=== PATIENT | male | born 1940 | race Caucasian/White ===

== ENCOUNTER → 2020-02-23 | Outpatient (CLI) | payer MEDICARE, BC ==
--- NOTE | 2020-02-25 19:59 | HM ---
HOLTER MONITOR REPORT Patient was monitored for 24 hours. The baseline rhythm is a sinus mechanism with normal conduction. The average rate 126 beats per minute, minimum 64, maximum 192 beats per minute. The patient started the tracing in atrial flutter with episode of 2:1 conduction, subsequently converted to sinus mechanism until the end of the tracing. Ventricular ectopic activity was present in the form of rare single PVCs. Single PACs and short bursts of SVT were noted. The patient's tracing showed 72% atrial flutter. No symptoms were reported. CONCLUSION: 1. Paroxysmal atrial flutter with rapid ventricular response and no significant pauses. 2. Rare ventricular ectopic activity. 3. No symptoms were reported. MMODL / IJN: [id number] /
== END | disposition home or self-care (01) ==
LOC: RADECHMAIN 12:05
PROVIDERS: ATTEND Family Medicine
DX: I48.92 Unspecified atrial flutter (principal); H91.90 Unspecified hearing loss, unspecified ear; F20.9 Schizophrenia, unspecified
CPT/HCPCS: 93225; 93226

== ENCOUNTER 2022-05-03 14:21 | Inpatient (IN) | payer MEDICARE, BC ==
[2022-05-03] MEDS ORDERED: SODIUM CHLORIDE 0.9% 1,000 ML IV STA (14:33)
[2022-05-03 14:36] LABS: Glucose,Whole Blood 124 mg/dL (70-110)
--- NOTE | 2022-05-03 14:39 | ED ---
Altered Mental Status HPI - General Chief Complaint: Altered Mental Status Stated Complaint: AMS Time Seen by Provider: 05/03/22 14:21 Source: EMS, RN notes reviewed Mode of arrival: EMS Limitations: altered mental status - History of Present Illness Initial Comments: 82-year-old male with a history of depression and schizophrenia UTIs who is on L [place] who apparently is been experiencing frequent falls recently. He lives in an [facility] home he was sent here for evaluation due to decreased level of consciousness. Unclear if these had any recent falls no reports of fevers chills nausea vomiting sweats information obtained from medics upon arrival and paperwork sent with the patient. No other information available at this time. Per report of paramedics he does seem to complain of left shoulder pain when he palpated over this region. No other current complaints or modifying factors at this time MD Complaint: altered mental status, confusion - Related Data Home Medications Medication Instructions Recorded Confirmed Apixaban [Eliquis] 5 mg PO BID 05/03/22 05/03/22 Ascorbic Acid [Vitamin C] 500 mg PO BID 05/03/22 05/03/22 Benzoyl Peroxide Liquid 10% Wash 1 applic TOPICAL DAILY 05/03/22 05/03/22 Cholecalciferol [Vitamin D3 (25 50 mcg PO DAILY 05/03/22 05/03/22 Mcg = 1000 Iu)] Coricidin Hbp Chest Dilan&Cough 1 tab PO BID PRN 05/03/22 05/03/22 Diclofenac Sodium Gel [Voltaren 2 gm TOPICAL TID PRN 05/03/22 05/03/22 Gel] Hypochlor 0.02% 1 applic TOPICAL DAILY 05/03/22 05/03/22 Loratadine [Claritin] 10 mg PO DAILY 05/03/22 05/03/22 Metoprolol Succinate [Toprol XL] 50 mg PO DAILY 05/03/22 05/03/22 Mirtazapine [Remeron] 30 mg PO HS 05/03/22 05/03/22 Zinc Gluconate [Zinc] 50 mg PO DAILY 05/03/22 05/03/22 amantadine HCL [Amantadine] 100 mg PO DAILY 05/03/22 05/03/22 hydroCHLOROthiazide 25 mg PO DAILY 05/03/22 05/03/22 levETIRAcetam [Keppra] 500 mg PO BID 05/03/22 05/03/22 risperiDONE [RisperDAL] 1 mg PO HS 05/03/22 05/03/22 Allergies Allergy/AdvReac Type Severity Reaction Status Date / Time No Known Allergies Allergy Unverified 05/03/22 15:38 Review of Systems ROS Statement: Those systems with pertinent positive or pertinent negative responses have been documented in the HPI. ROS Other: All systems not noted in ROS Statement are negative. Limitations: ROS unobtainable due to patients medical condition Past Medical History Past Medical History: COPD, Hyperlipidemia History of Any Multi-Drug Resistant Organisms: None Reported Past Surgical History: No Surgical Hx Reported Past Psychological History: Depression, Schizophrenia Smoking Status: Unknown if ever smoked Past Alcohol Use History: None Reported Past Drug Use History: None Reported General Exam - General Exam Comments Initial Comments: This is a well-developed well-nourished awake alert no lethargic appearing male who does not answer questions. Limitations: altered mental status General appearance: alert, in no apparent distress Head exam: Present: atraumatic, normocephalic, normal inspection Eye exam: Present: normal appearance, PERRL, EOMI. Absent: scleral icterus, conjunctival injection, periorbital swelling ENT exam: Present: mucous membranes dry Neck exam: Present: normal inspection, full ROM, other (Studies urine or bruits). Absent: tenderness, meningismus, lymphadenopathy Respiratory exam: Present: normal lung sounds bilaterally. Absent: respiratory distress, wheezes, rales, rhonchi, stridor Cardiovascular Exam: Present: normal rhythm, normal heart sounds, other (Evidence of extrasystoles). Absent: systolic murmur, diastolic murmur, rubs, gallop, clicks GI/Abdominal exam: Present: soft, normal bowel sounds. Absent: distended, tenderness, guarding, rebound, rigid Rectal exam: Present: deferred Extremities exam: Present: normal inspection, tenderness (Chest palpation of left shoulder evidence of possible previous surgery with scar formation noted), normal capillary refill. Absent: full ROM, pedal edema, joint swelling, calf tenderness Back exam: Present: normal inspection Neurological exam: Present: alert, altered, CN II-XII intact Psychiatric exam: Present: normal affect, normal mood Skin exam: Present: warm, dry, intact, normal color. Absent: rash Course Vital Signs 05/03/22 05/03/2205/03/22 14:28 14:48 15:30 Temperature 98.8 F Pulse Rate 73 72 70 Respiratory 16 18 16 Rate Blood Pressure 130/67 133/66 106/62 O2 Sat by Pulse 96 97 96 Oximetry 05/03/22 16:19 Temperature Pulse Rate 68 Respiratory 18 Rate Blood Pressure O2 Sat by Pulse 97 Oximetry Medical Decision Making - Medical Decision Making I did discuss findings with Dr. Meza who did come to see the patient patient is a no code DO NOT RESUSCITATE. Patient be admitted I did discuss case with Dr. Chacon who did come the emergency department to see the patient. I also did discuss case with Dr. Bates from radiology. - Lab Data Result diagrams: 05/03/22 14:26 05/03/22 14:26 Lab Results 05/03/22 05/03/22 05/03/22 Range/Units 14:26 14:26 14:26 WBC 17.6 H (3.8-10.6) k/uL RBC 4.39 (4.30-5.90) m/uL Hgb 13.8 (13.0-17.5) gm/dL Hct 39.2 (39.0-53.0) % MCV 89.3 (80.0-100.0) fL MCH 31.3 (25.0-35.0) pg MCHC 35.1 (31.0-37.0) g/dL RDW 13.2 (11.5-15.5) % Plt Count 216 (150-450) k/uL MPV 8.1 Neutrophils % (Manual) 71 % Band Neuts % (Manual) 10 % Lymphocytes % (Manual) 7 % Monocytes % (Manual) 10 % Metamyelocytes % 2 % Neutrophils # (Manual) 14.20 H (1.3-7.7) k/uL Lymphocytes # (Manual) 1.23 (1.0-4.8) k/uL Monocytes # (Manual) 1.76 H (0-1.0) k/uL Metamyelocytes # (Man) 0.35 H (0) k/uL Nucleated RBCs 0 (0-0) /100 WBC Manual Slide Review Performed PT 12.6 H (9.0-12.0) sec INR 1.2 H (<1.2) APTT 33.0 H (22.0-30.0) sec Sodium 125 L (137-145) mmol/L Potassium 3.2 L (3.5-5.1) mmol/L Chloride 88 L (98-107) mmol/L Carbon Dioxide 24 (22-30) mmol/L Anion Gap 13 mmol/L BUN 24 H (9-20) mg/dL Creatinine 1.12 (0.66-1.25) mg/dL Est GFR (CKD-EPI)AfAm 71 (>60 ml/min/1.73 sqM) Est GFR (CKD-EPI)NonAf 61 (>60 ml/min/1.73 sqM) Glucose 121 H (74-99) mg/dL POC Glucose (mg/dL) (70-110) mg/dL POC Glu Payroll Human Resources Assistant ID Calcium 8.5 (8.4-10.2) mg/dL Total Bilirubin 1.2 (0.2-1.3) mg/dL AST 55 (17-59) U/L ALT 24 (4-49) U/L Alkaline Phosphatase 96 (38-126) U/L Ammonia (<30) umol/L Troponin I (0.000-0.034) ng/mL Total Protein 6.0 L (6.3-8.2) g/dL Albumin 3.6 (3.5-5.0) g/dL Coronavirus (PCR) (Not Detectd) 05/03/22 05/03/22 05/03/22 Range/Units 14:26 14:26 14:34 WBC (3.8-10.6) k/uL RBC (4.30-5.90) m/uL Hgb (13.0-17.5) gm/dL Hct (39.0-53.0) % MCV (80.0-100.0) fL MCH (25.0-35.0) pg MCHC (31.0-37.0) g/dL RDW (11.5-15.5) % Plt Count (150-450) k/uL MPV Neutrophils % (Manual) % Band Neuts % (Manual) % Lymphocytes % (Manual) % Monocytes % (Manual) % Metamyelocytes % % Neutrophils # (Manual) (1.3-7.7) k/uL Lymphocytes # (Manual) (1.0-4.8) k/uL Monocytes # (Manual) (0-1.0) k/uL Metamyelocytes # (Man) (0) k/uL Nucleated RBCs (0-0) /100 WBC Manual Slide Review PT (9.0-12.0) sec INR (<1.2) APTT (22.0-30.0) sec Sodium (137-145) mmol/L Potassium (3.5-5.1) mmol/L Chloride (98-107) mmol/L Carbon Dioxide (22-30) mmol/L Anion Gap mmol/L BUN (9-20) mg/dL Creatinine (0.66-1.25) mg/dL Est GFR (CKD-EPI)AfAm (>60 ml/min/1.73 sqM) Est GFR (CKD-EPI)NonAf (>60 ml/min/1.73 sqM) Glucose (74-99) mg/dL POC Glucose (mg/dL) 124 H (70-110) mg/dL POC Glu Payroll Human Resources Assistant ID Willing, Kecia Calcium (8.4-10.2) mg/dL Total Bilirubin (0.2-1.3) mg/dL AST (17-59) U/L ALT (4-49) U/L Alkaline Phosphatase (38-126) U/L Ammonia 11 (<30) umol/L Troponin I 0.020 (0.000-0.034) ng/mL Total Protein (6.3-8.2) g/dL Albumin (3.5-5.0) g/dL Coronavirus (PCR) (Not Detectd) 05/03/22 Range/Units 14:48 WBC (3.8-10.6) k/uL RBC (4.30-5.90) m/uL Hgb (13.0-17.5) gm/dL Hct (39.0-53.0) % MCV (80.0-100.0) fL MCH (25.0-35.0) pg MCHC (31.0-37.0) g/dL RDW (11.5-15.5) % Plt Count (150-450) k/uL MPV Neutrophils % (Manual) % Band Neuts % (Manual) % Lymphocytes % (Manual) % Monocytes % (Manual) % Metamyelocytes % % Neutrophils # (Manual) (1.3-7.7) k/uL Lymphocytes # (Manual) (1.0-4.8) k/uL Monocytes # (Manual) (0-1.0) k/uL Metamyelocytes # (Man) (0) k/uL Nucleated RBCs (0-0) /100 WBC Manual Slide Review PT (9.0-12.0) sec INR (<1.2) APTT (22.0-30.0) sec Sodium (137-145) mmol/L Potassium (3.5-5.1) mmol/L Chloride (98-107) mmol/L Carbon Dioxide (22-30) mmol/L Anion Gap mmol/L BUN (9-20) mg/dL Creatinine (0.66-1.25) mg/dL Est GFR (CKD-EPI)AfAm (>60 ml/min/1.73 sqM) Est GFR (CKD-EPI)NonAf (>60 ml/min/1.73 sqM) Glucose (74-99) mg/dL POC Glucose (mg/dL) (70-110) mg/dL POC Glu Payroll Human Resources Assistant ID Calcium (8.4-10.2) mg/dL Total Bilirubin (0.2-1.3) mg/dL AST (17-59) U/L ALT (4-49) U/L Alkaline Phosphatase (38-126) U/L Ammonia (<30) umol/L Troponin I (0.000-0.034) ng/mL Total Protein (6.3-8.2) g/dL Albumin (3.5-5.0) g/dL Coronavirus (PCR) Not Detected (Not Detectd) - EKG Data -: EKG Interpreted by Me EKG Comments: I did review and evaluate the EKG sinus rhythm with occasional supraventricular complexes rate 76 LA interval 160 QRS duration 114 QT since QTC 370/[address]-T wave changes seen - Radiology Data Radiology results: report reviewed (Image reviewed report reviewed did evaluate the imaging evidence of a left frontal subdural appears be old. Additionally chest x-ray shows evidence of a left basilar infiltrate as well as right side possible mass.), image reviewed Disposition Clinical Impression: Subdural hematoma, Hyponatremia syndrome, Dehydration, Pneumonia, Lung mass, Fall, Failure to thrive Disposition: ADMITTED IP TO THIS HOSP Condition: Fair Referrals: Ari Baker MD [Primary Care Provider] - 1-2 days Decision Date: 05/03/22 Decision Time: 15:30
[2022-05-03 15:01] LABS: Albumin 3.6 g/dL (3.5-5.0); Calcium 8.5 mg/dL (8.4-10.2); INR 1.2 (<1.2); Potassium 3.2 mmol/L (3.5-5.1); Prothrombin Time 12.6 sec (9.0-12.0); Total Bilirubin 1.2 mg/dL (0.2-1.3)
[2022-05-03 15:04] LABS: HCT 39.2 % (39.0-53.0); HGB 13.8 gm/dL (13.0-17.5); MCH 31.3 pg (25.0-35.0); MCHC 35.1 g/dL (31.0-37.0); MCV 89.3 fL (80.0-100.0); Mean Platelet Volume 8.1; Platelet Count 216 k/uL (150-450); RBC 4.39 m/uL (4.30-5.90); RDW 13.2 % (11.5-15.5); WBC 17.6 k/uL (3.8-10.6)
[2022-05-03 15:18] LABS: Band Neutrophils % 10 %; Lymphocytes # (M) 1.23 k/uL (1.0-4.8); Metamyelocytes # (M) 0.35 k/uL (0); Metamyelocytes % 2 %; Monocytes # (M) 1.76 k/uL (0-1.0); Neutrophils % (M) 71 %; Nucleated Red Blood Cells 0 /100 WBC (0-0); Total Cells Counted 100
--- NOTE | 2022-05-03 16:02 | CT ---
EXAMINATION TYPE: CT brain bk wo con DATE OF EXAM: 05/03/2022 COMPARISON: None HISTORY: Frequent fall CT DLP: 1393.2 mGycm, Automated exposure control for dose reduction was used. CONTRAST: Patient injected with 0 mL of Isovue 300. CT of the brain is performed utilizing 3 mm thick sections through the posterior fossa and 3 mm thick sections through the remaining calvarium. Study is performed within 24 hours of arrival to the hospital. Postsurgical changes are within the left temporal region may be aneurysm repair. This has some scatte r artifact in some limitation to this region. No abnormal hyperdensity is present to suggest an acute intracranial hemorrhage. No mass lesion is evident. No acute infarcts are evident. There is hypodensity through the left temporal lobe may be prior infa rct or ischemic change. Periventricular white matter hypodensity is present, likely on the basis of chronic white matter isch emic changes. A left temporal craniotomy is evident. There is a hypodense extra-axial collection through the left frontal parietal region. Subacute to old subdural hematoma is likely present. This has a depth of 0.6 cm. No midline shift is evident. No sub falcine herniation. Ventricles and sulci are somewhat prominent for the patient age. Paranasal sinuses and mastoid air cells within the [id number] are clear. IMPRESSIONS: 1. Subacute or chronic left subdural hematoma with a depth of 0.6 cm. Report was called to emergency room physician by Dr. Bates by telephone at 1550 hours 05/03/2022 2. Atrophy with chronic appearing periventricular white matter ischemic-type changes. 3. Postsurgical changes left middle cranial fossa. 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 CT cervical spine. COMPARISON: None CT of the cervical spine is performed in the axial plane at 2 mm thick sections. Reconstructed image s in the coronal, and sagittal plane are reviewed on the computer. No acute fractures are evident. Minimal anterior grade 1 spondylolisthesis of C4 anteriorly on C5 may be present. No spinal canal jose nosis is present. Degenerative disc changes with loss of disc height are present throughout the cervical spine. This is greatest at the C4-5 C5-6 C6-7 levels. Vertebral body heights are preserved. No spinal canal stenosis is evident. Mild foraminal narrowing C6-7 and moderate foraminal narrowing C5-6 C4-5 on the right is present. IMPRESSIONS: 1. Degenerative disc changes mid cervical spine. 2. Uncovertebral hypertrophy contribute to foraminal stenosis C4-5 C5-6 and C6-7 3. No acute osseous abnormality. 4. Mild grade 1 spondylolisthesis of C4 entry on C5
--- NOTE | 2022-05-03 16:05 | XR ---
EXAMINATION TYPE: XR chest 2V DATE OF EXAM: 05/03/2022 COMPARISON: NONE TECHNIQUE: PA and lateral views submitted. HISTORY: None FINDINGS: There is a nodular density in the right lower lobe. Subsegmental changes left lower lobe. Chronic jeb earing deformity of the left humerus. Hyperinflation suggests COPD. Atherosclerotic change aorta. The re is no pneumothorax. Degenerative changes of the spine. IMPRESSION: 1. Questionable mass within the right lower lobe measuring 3.[address] chest. 2. COPD with left basilar atelectasis or early infiltrate correlate clinically.
--- NOTE | 2022-05-03 16:07 | XR ---
EXAMINATION TYPE: XR shoulder complete LT DATE OF EXAM: 05/03/2022 COMPARISON: NONE HISTORY: Pain TECHNIQUE: Three views are submitted. FINDINGS: There is absence of the humeral head. Diffuse osteopenia with arthropathy of the AC joint. IMPRESSION: 1. There is absence of the left humeral head related to prior surgery. Otherwise consider destructive process.
[2022-05-03] MEDS ORDERED: ACETAMINOPHEN TAB 325 MG TAB PO PRN (17:52)
[2022-05-03] MEDS ORDERED: NALOXONE 0.4 MG/ML 1 ML VIAL IV PRN (17:52)
[2022-05-03] MEDS ORDERED: cefTRIAXone IN SWFI 1,000 MG/10 ML SYRINGE IVP STA (17:59)
[2022-05-03] MEDS ORDERED: AZITHROMYCIN 500 MG in SODIUM CHLORIDE 0.9% 250 ML IVPB STA (17:59)
[2022-05-03] MEDS: SODIUM CHLORIDE 0.9% 1,000 ML IV SCH (19:02)
[2022-05-03] MEDS: risperiDONE 1 MG TAB PO SCH (21:39)
[2022-05-03] MEDS: MIRTAZAPINE 15 MG TAB PO SCH (21:40)
[2022-05-03] MEDS: levETIRAcetam 500 MG TAB PO SCH (21:40)
[2022-05-03] MEDS: ASCORBIC ACID 500 MG TAB PO SCH (21:40)
--- NOTE | 2022-05-03 22:38 | P.CNNES ---
History of Present Illness Consult date: 05/03/22 Requesting physician: Maulik Ceron Reason for Consult: Subdural hematoma History of Present Illness: Patient is a 82-year-old male with history of patient came to the hospital via ambulance today at 2:21 PM for altered mental status. Patient does not know details as to the cause of transfer to the hospital. Family members were not available at the scene. Chronic records, patient lives at [facility] home and was noted to have decreased level of consciousness. As per EMS flow sheet they arrived to find patient with a ltered mental status. Patient was sitting on the couch with other residents at [facility], with no apparent signs of distress. Patient was alert and oriented 2. [facility] mentioned that they believe the patient has a UTI. Unknown on patient's last normal. [facility] also mentioned that patient is normally mildly confused but he is appearing more altered and is normal and that he has been falling a lot recently, unknown if he struck his head, marked objects he fell onto, or when his last fall occurred. Patient does take Eliquis. No outward signs of trauma noted. Patient's blood was was 144 mg/dL. Temperature 97.7. Stroke scale was negative. EKG showed normal sinus rhythm. Pupils were clouded but equal and reactive. Patient denied any chest pain or discomfort, or difficulty breathing, nausea vomiting dizziness or headache. Patient's blood pressure was 126/62. Patient's blood test shows WBC 17.6 hemoglobin 13.8, platelets 2 and 16. INR is 1.2, PTT 33.0. Sodium 125 potassium 3.2, BUN 24, creatinine 1.12. Hepatic panel is normal. Troponin negative. Coronal virus PCR negative. CT head showed subacute or chronic left subdural hematoma, with a depth of 0.6 cm. Atrophy with chronic appearing periventricular white matter ischemic type changes. Post surgical changes left middle cranial fossa. Old left temporal lobe infarct. I personally reviewed CT head and agree with the findings. No previous computed tomography scan head available for comparison. CT of the cervical spine showed degenerative disc changes mid cervical spine. Uncovertebral hypertrophy contributing to foraminal stenosis C4 5, C5 6 and C6 7. No acute osseous abnormality. Mild grade 1 spondylolisthesis of C4 on C5. Patient currently takes metoprolol, Eliquis, amantadine 100 mg daily, zinc, risperidone 1 mg at bedtime, mirtazapine 30 mg bedtime, Keppra 500 mg twice a day, HCTZ. Patient states that he has history of brain surgery about 15 years ago due to a blood clot. Patient has smoked 1 pack per day for 40 years, quit 1 year ago. 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 Denies any history of seizures. Denies diabetes. He states that he has a sister who is alive. He has no children. Review of Systems Constitutional: Denies chills, Denies fever Eyes: left loss of peripheral vision (Has right homonymous hemianopia, which he claims is chronic 40 years ago.), denies diplopia, denies pain Ears: bilateral: decreased hearing Ears, nose, mouth and throat: Denies headache, Denies sore throat Cardiovascular: Denies chest pain, Denies shortness of breath Respiratory: Denies cough Gastrointestinal: Denies abdominal pain, Denies diarrhea, Denies nausea, Denies vomiting Musculoskeletal: Denies myalgias Integumentary: Denies pruritus, Denies rash Neurological: Reports as per HPI Psychiatric: Denies anxiety, Denies depression Endocrine: Denies fatigue, Denies weight change Hematologic/Lymphatic: Denies easy bruising Past Medical History Past Medical History: COPD, Hyperlipidemia History of Any Multi-Drug Resistant Organisms: None Reported Past Surgical History: No Surgical Hx Reported Past Psychological History: Depression, Schizophrenia Smoking Status: Unknown if ever smoked Past Alcohol Use History: None Reported Past Drug Use History: None Reported Medications and Allergies Home Medications Medication Instructions Recorded Confirmed Type Apixaban [Eliquis] 5 mg PO BID 05/03/22 05/03/22 History Ascorbic Acid [Vitamin C] 500 mg PO BID 05/03/22 05/03/22 History Benzoyl Peroxide Liquid 10% Wash 1 applic TOPICAL DAILY 05/03/22 05/03/22 History Cholecalciferol [Vitamin D3 (25 50 mcg PO DAILY 05/03/22 05/03/22 History Mcg = 1000 Iu)] Coricidin Hbp Chest Dilan&Cough 1 tab PO BID PRN 05/03/22 05/03/22 History Diclofenac Sodium Gel [Voltaren 2 gm TOPICAL TID PRN 05/03/22 05/03/22 History Gel] Hypochlor 0.02% 1 applic TOPICAL DAILY 05/03/22 05/03/22 History Loratadine [Claritin] 10 mg PO DAILY 05/03/22 05/03/22 History Metoprolol Succinate [Toprol XL] 50 mg PO DAILY 05/03/22 05/03/22 History Mirtazapine [Remeron] 30 mg PO HS 05/03/22 05/03/22 History Zinc Gluconate [Zinc] 50 mg PO DAILY 05/03/22 05/03/22 History amantadine HCL [Amantadine] 100 mg PO DAILY 05/03/22 05/03/22 History hydroCHLOROthiazide 25 mg PO DAILY 05/03/22 05/03/22 History levETIRAcetam [Keppra] 500 mg PO BID 05/03/22 05/03/22 History risperiDONE [RisperDAL] 1 mg PO HS 05/03/22 05/03/22 History Allergies Allergy/AdvReac Type Severity Reaction Status Date / Time No Known Allergies Allergy Unverified 05/03/22 15:38 Physical Examination - Vital Signs Vital Signs: Vital Signs Temp Pulse Resp BP Pulse Ox 05/03/22 16:19 68 18 97 05/03/22 15:30 70 16 106/62 96 05/03/22 14:48 72 18 133/66 97 05/03/22 14:28 98.8 F 73 16 130/67 96 Intake and Output 05/03/22 05/03/22 05/03/22 06:59 14:59 22:59 Other: Weight 174 kg 78.925 kg Patient is an elderly male, in no acute distress. Patient is alert awake. Patient knows it is May 2022. He states he could not remember name of the city or the county he lives in, although he knows that he lives in [place]. Patient knows his age of 82 years. He was able to tell name of the president with prompt. He thinks he is in the clinic right now. Speech and language functions are normal. Patient can name and repeat very well. No aphasia or dysarthria. Attention, concentration and fund of knowledge is limited. On cranial nerve examination, pupils are equal, round and reacting to light, visual cardona revealed right homonymous hemianopia on confrontation. Patient has exotropia looking to the left with left ptosis. No nystagmus. Face is symmetric, tongue protrudes to the midline. Palatal elevation and sensation normal, hearing and shoulder shrug decreased on the left. Facial sensation normal. On muscle strength testing, patient has chronic weakness of the left shoulder with no movement. He has no left shoulder joint. the strength is normal in the right arm distally and proximally. On the left side, his biceps, and myrna ps at about 4, with some guarding because of shoulder weakness. 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 Patient's hip flexion is 4+5-bilaterally, ankle dorsiflexion 5. Deep tendon reflexes are symmetric 1 at the biceps, 1 brachioradialis, 0 at the knees, 0 ankles and plantars are upgoing bilaterally. Sensory to touch is equal with no neglect on double simultaneous stimulation. Cerebellar function showed no ataxia for [id number] testing on either side . No dysdiadochokinesia. Tone and bulk of muscles normal. Gait deferred.. On general examination, there is no carotid bruit or murmur, S1-S2 audible. Chest is clear on consultation. Abdomen is soft nontender. No organomegaly, bowel sounds present. Peripheral pulses are present. No edema. Results - Laboratory Findings CBC and BMP: 05/03/22 14:26 05/03/22 14:26 Abnormal Lab Findings: Abnormal Labs 05/03/22 05/03/22 05/03/22 14:26 14:26 14:26 WBC 17.6 H Neutrophils # (Manual) 14.20 H Monocytes # (Manual) 1.76 H Metamyelocytes # (Man) 0.35 H PT 12.6 H INR 1.2 H APTT 33.0 H Sodium 125 L Potassium 3.2 L Chloride 88 L BUN 24 H Glucose 121 H POC Glucose (mg/dL) Total Protein 6.0 L 05/03/22 14:34 WBC Neutrophils # (Manual) Monocytes # (Manual) Metamyelocytes # (Man) PT INR APTT Sodium Potassium Chloride BUN Glucose POC Glucose (mg/dL) 124 H Total Protein Assessment and Plan Assessment: * Subdural hematoma left frontal parietal region with a depth of 0.6 cm. * Reported recurrent falls * Patient on anticoagulation with Eliquis, unclear reason. * History of left intracranial hemorrhage, status post craniotomy 40 years ago (per patient) * Right homonymous hemianopia, chronic. * Hyponatremia * Chronic left shoulder pathology * COPD * Hyperlipidemia * Psych history * X tobacco use. Plan: * Hold Eliquis * Check EEG in the morning. Continue Keppra 500 mg twice a day. * We will check Keppra level. * Repeat CT head in the morning. * We discussed about potential transfer to higher level of care, but patient is no code. * Neurology will follow. Thank you for the consult.
[2022-05-03 23:07] LABS: Appearance,Urine Cloudy (Clear); Bacteria,Urine Rare /hpf; Bilirubin,Urine Negative (Negative); Blood,Urine Negative (Negative); Color,Urine Yellow; Glucose,Urine (UA) Negative (Negative); Hyaline Casts,Urine 25 /lpf (0-2); Ketones,Urine Negative (Negative); Leukocyte Esterase,Urine Negative (Negative); Mucus,Urine Moderate /hpf; Nitrite,Urine Negative (Negative); Protein,Urine 1+ (Negative); RBC,Urine 3 /hpf (0-5); Specific Gravity,Urine 1.024 (1.001-1.035); Squamous Epithelial Cell,Urine 1 /hpf (0-4); Urobilinogen,Urine <2.0 mg/dL (<2.0); WBC,Urine 6 /hpf (0-5)
[2022-05-03 23:12] LABS: Phencyclidine Screen,Urine Not Detected (NotDetected); Urn Cannabinoid Scrn Not Detected (NotDetected)
[2022-05-03 23:13] LABS: Amphetamine Screen,Urine Not Detected (NotDetected); Barbiturate Screen,Urine Not Detected (NotDetected); Benzodiazepines Screen,Urine Not Detected (NotDetected); Cocaine Screen,Urine Not Detected (NotDetected); Methadone Screen, Urine Not Detected (NotDetected); Opiate Screen,Urine Not Detected (NotDetected); Oxycodone Screen, Urine Not Detected (NotDetected); Tricyclic Antidepressant,Urine Not Detected (NotDetected)
--- NOTE | 2022-05-04 02:19 | P.HPIM ---
History of Present Illness H&P Date: 05/03/22 Chief Complaint: frequent falls 82 year old male with schizo, depression ,and recurrent UTI. patient on blood thinners for unknown reason patient is poor historian and provide limited info. he is awake and alert. family not available at this time. patient is an [facility] home resident. he is reported to have frequent falling and today was found confused, for which 911 n otified, they found him seated on a couch properly oriented. staff mentioned that he is having frequent falls with changes in mental status and suspecting an acute infection like UTI. patient is also on eliquis , and with his frequent falls and possible head injuries , there were concerns regarding intacranial pathology . patient himself denies any headache, chest pain , abd pain , trouble breathing, fever, chills, diarrhea, changes in urinary habits. blood work showed elevated WBC, hyponatremia , COVID negative. CT of the brain showed left frontal chronic subdural hematoma . patient does have remote history of intracranial bleed or blood clot in the brain CT of the cspine , no acute pathology CXR possible right lung mass Review of Systems ROS unobtainable: due to mental status Past Medical History Past Medical History: COPD, Hyperlipidemia History of Any Multi-Drug Resistant Organisms: None Reported Past Surgical History: No Surgical Hx Reported Past Psychological History: Depression, Schizophrenia Smoking Status: Unknown if ever smoked Past Alcohol Use History: None Reported Past Drug Use History: None Reported - Past Family History family Family Medical History: Unable to Obtain Medications and Allergies Home Medications Medication Instructions Recorded Confirmed Type Apixaban [Eliquis] 5 mg PO BID 05/03/22 05/03/22 History Ascorbic Acid [Vitamin C] 500 mg PO BID 05/03/22 05/03/22 History Benzoyl Peroxide Liquid 10% Wash 1 applic TOPICAL DAILY 05/03/22 05/03/22 History Cholecalciferol [Vitamin D3 (25 50 mcg PO DAILY 05/03/22 05/03/22 History Mcg = 1000 Iu)] Coricidin Hbp Chest Dilan&Cough 1 tab PO BID PRN 05/03/22 05/03/22 History Diclofenac Sodium Gel [Voltaren 2 gm TOPICAL TID PRN 05/03/22 05/03/22 History Gel] Hypochlor 0.02% 1 applic TOPICAL DAILY 05/03/22 05/03/22 History Loratadine [Claritin] 10 mg PO DAILY 05/03/22 05/03/22 History Metoprolol Succinate [Toprol XL] 50 mg PO DAILY 05/03/22 05/03/22 History Mirtazapine [Remeron] 30 mg PO HS 05/03/22 05/03/22 History Zinc Gluconate [Zinc] 50 mg PO DAILY 05/03/22 05/03/22 History amantadine HCL [Amantadine] 100 mg PO DAILY 05/03/22 05/03/22 History hydroCHLOROthiazide 25 mg PO DAILY 05/03/22 05/03/22 History levETIRAcetam [Keppra] 500 mg PO BID 05/03/22 05/03/22 History risperiDONE [RisperDAL] 1 mg PO HS 05/03/22 05/03/22 History Allergies Allergy/AdvReac Type Severity Reaction Status Date / Time No Known Allergies Allergy Unverified 05/03/22 15:38 Physical Exam Vitals: Vital Signs Temp Pulse Resp BP Pulse Ox 05/04/22 01:00 99.1 F 92 21 133/63 95 05/03/22 19:04 78 18 130/57 98 05/03/22 17:45 76 18 102/73 97 05/03/22 16:19 68 18 97 05/03/22 15:30 70 16 106/62 96 05/03/22 14:48 72 18 133/66 97 05/03/22 14:28 98.8 F 73 16 130/67 96 Intake and Output 05/03/22 05/03/22 05/04/22 14:59 22:59 06:59 Other: Weight 174 kg 78.925 kg Constitutional: No acute distress, he seems to be confused , but answers questions appropriately and cooperative Eyes: Anicteric sclerae, moist conjunctiva, Pupils equal round reactive to light ENMT: NC/AT Oropharynx clear, no erythema, or exudates Neck: Supple, no masses, or JVD No carotid bruits No thyromegaly Lungs: Clear to auscultation Clear to percussion Normal respiratory effort, no accessory muscle use Cardiovascular: Heart regular in rate and rhythm, No murmurs, gallops, or rubs No peripheral edema Abdominal: Soft Nontender, no guarding, rebound or rigidity Abdomen moving with respiration Normoactive bowel sounds No hepatomegaly, No splenomegaly No palpable mass No abdominal wall hernia noted Skin: Normal temperature, tone, texture, turgor No induration No subcutaneous nodules No rash, lesions No ulcers Extremities: No digital cyanosis No clubbing Pedal pulses intact and symmetrical Radial pulses intact and symmetrical No calf tenderness Psychiatric: Alert answers questions very slow and oriented to person, place and time with some encouragement Neuro Muscles Strength moving all 4 extremities , some limitations over the left upper extremity due to left shoulder injury otherwise strength 4-5/5 in all 4 extremities Sensation to light touch grossly present throughout Cranial nerves II-XII grossly intact Lymphatics: no palpable cervical or supraclavicular lymph nodes Results CBC & Chem 7: 05/03/22 14:26 05/03/22 14:26 Labs: Abnormal Lab Results - Last 24 Hours (Table) 05/03/22 05/03/22 05/03/22 Range/Units 14:26 14:26 14:26 WBC 17.6 H (3.8-10.6) k/uL Neutrophils # (Manual) 14.20 H (1.3-7.7) k/uL Monocytes # (Manual) 1.76 H (0-1.0) k/uL Metamyelocytes # (Man) 0.35 H (0) k/uL PT 12.6 H (9.0-12.0) sec INR 1.2 H (<1.2) APTT 33.0 H (22.0-30.0) sec Sodium 125 L (137-145) mmol/L Potassium 3.2 L (3.5-5.1) mmol/L Chloride 88 L (98-107) mmol/L BUN 24 H (9-20) mg/dL Glucose 121 H (74-99) mg/dL POC Glucose (mg/dL) (70-110) mg/dL Total Protein 6.0 L (6.3-8.2) g/dL Urine Protein (Negative) Urine WBC (0-5) /hpf Urine Bacteria (None) /hpf Hyaline Casts (0-2) /lpf Urine Mucus (None) /hpf 05/03/22 05/03/22 Range/Units 14:34 Unknown WBC (3.8-10.6) k/uL Neutrophils # (Manual) (1.3-7.7) k/uL Monocytes # (Manual) (0-1.0) k/uL Metamyelocytes # (Man) (0) k/uL PT (9.0-12.0) sec INR (<1.2) APTT (22.0-30.0) sec Sodium (137-145) mmol/L Potassium (3.5-5.1) mmol/L Chloride (98-107) mmol/L BUN (9-20) mg/dL Glucose (74-99) mg/dL POC Glucose (mg/dL) 124 H (70-110) mg/dL Total Protein (6.3-8.2) g/dL Urine Protein 1+ H (Negative) Urine WBC 6 H (0-5) /hpf Urine Bacteria Rare H (None) /hpf Hyaline Casts 25 H (0-2) /lpf Urine Mucus Moderate H (None) /hpf Assessment and Plan Assessment: 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
[2022-05-04] MEDS ORDERED: POTASSIUM CHLORIDE ER 20 MEQ TAB.ER PO STA (02:21)
[2022-05-04 09:14] LABS: HCT 40.7 % (39.6-50.0); HGB 13.5 g/dL (13.0-17.0); MCH 30.3 pg (27.0-32.0); MCHC 33.2 g/dL (32.0-37.0); MCV 91.3 fL (80.0-97.0); Mean Platelet Volume 10.4 fL (9.5-12.2); NRBC Per 100 WBC 0 /100 WBCS (0.0-0.0); Platelet Count 209 X 10*3/uL (140-440); RBC 4.46 X 10*6/uL (4.40-5.60); RDW 13.6 % (11.5-14.5)
[2022-05-04 09:17] LABS: African American GFR (CKD) 80.9 (60.0-200.0); Albumin 3.2 g/dL (3.8-4.9); Albumin/Globulin Ratio 1.52 (1.60-3.17); Anion Gap 9.9 mmol/L (10.00-18.00); BUN/Creat Ratio 25.5 Ratio (12.00-20.00); Blood Urea Nitrogen 25.5 mg/dL (9.0-27.0); Calcium 8.4 mg/dL (8.7-10.3); Carbon Dioxide 26.1 mmol/L (20.0-27.5); Globulin 2.1 g/dL (1.6-3.3); Non-African American GFR(CKD) 69.8 (60.0-200.0); Potassium 3.5 mmol/L (3.5-5.5); Total Bilirubin 0.6 mg/dL (0.30-1.20); Total Protein 5.3 g/dL (6.2-8.2)
[2022-05-04] MEDS: METOPROLOL SUCCINATE (ER) 50 MG TAB.ER.24H PO SCH (09:49)
[2022-05-04] MEDS: ASCORBIC ACID 500 MG TAB PO SCH ×2 (09:49→21:15)
[2022-05-04] MEDS: LORATADINE 10 MG TAB PO SCH (09:49)
[2022-05-04] MEDS: levETIRAcetam 500 MG TAB PO SCH ×2 (09:49→21:14)
[2022-05-04] MEDS: PANTOPRAZOLE 40 MG/10 ML VIAL IV SCH (09:49)
[2022-05-04] MEDS: ZINC SULFATE 220 MG CAP PO SCH (09:49)
[2022-05-04] MEDS: hydroCHLOROthiazide 25 MG TAB PO SCH (09:49)
[2022-05-04] MEDS: CHOLECALCIFEROL 25 MCG (1000 IU) TABLET PO SCH (09:49)
[2022-05-04] MEDS: SODIUM CHLORIDE 0.9% 1,000 ML IV SCH ×3 (09:54→21:10)
[2022-05-04 10:28] LABS: Acanthocytes 2+; Basophils # (A) 0.01 X 10*3/uL (0.00-0.10); Basophils % (A) 0.1 %; Eosinophils # (A) 0 X 10*3/uL (0.04-0.35); Eosinophils % (A) 0 %; Immature Grans, Automated 0.9 %; Lymphocytes # (A) 0.45 X 10*3/uL (0.90-5.00); Lymphocytes % (A) 3.1 %; Monocytes # (A) 2.24 X 10*3/uL (0.20-1.00); Monocytes % (A) 15.7 %; Neutrophils # (A) 11.47 X 10*3/uL (1.80-7.70); Neutrophils % (A) 80.2 %
--- NOTE | 2022-05-04 11:03 | CT ---
EXAMINATION TYPE: CT brain wo con DATE OF EXAM: 05/04/2022 COMPARISON: 05/03/2022 HISTORY: Follow up subdural hematoma. CT DLP: 1188.[address] of the brain was performed. The ventricles, basal cisterns and sulci overlying the cerebral convexities demonstrate moderate enla rgement. 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 Streak artifact limits evaluation. Encephalomalacia left temporal lobe. There is prominence of the subdural space le ft frontal parietal region which is felt to reflect subdural hygroma rather than subacute subdural he matoma. No acute intracranial hemorrhage is seen at this time. There is no evidence for sulcal efface ment. There is decreased attenuation about the periventricular white matter and deep white matter of both c erebral hemispheres, compatible with chronic small vessel ischemia. Differential diagnosis does inclu de demyelination. No mass effects are seen.No midline shift. Osseous calvarium is intact. If symptoms persist consider MRI. IMPRESSION: 1. There is prominence of the subdural space left frontal parietal region which is felt to reflect mccray bdural hygroma rather than subacute subdural hematoma. No acute intracranial hemorrhage is seen at th is time.
[2022-05-04] MEDS: APIXABAN 5 MG TAB PO SCH (21:15)
[2022-05-04] MEDS: risperiDONE 1 MG TAB PO SCH (21:42)
[2022-05-04] MEDS: MIRTAZAPINE 15 MG TAB PO SCH (21:42)
--- NOTE | 2022-05-04 23:01 | P.PN ---
Subjective Progress Note Date: 05/04/22 Patient was seen for a follow-up. Patient's sister was also present today. She mentioned that patient has history of atrial flutter therefore on Eliquis. She mentions that when patient was in [place] in 1970, he had some incident, and he ended up in psychiatric hospital. She also mentioned that patient is blind in the left eye since that incident in 1970. Patient has never disclosed the reason that led to his hospitalization, or what happened during hospitalization. Patient's sister mentions that patient just told him that about twice he has slid out of bed to time, but never hit his head. Patient's mentation has improved. He is complaining of headache, some chest pain and left shoulder pain. Patient's sister mentions that he is usually not a complainer. Objective - Vital Signs Vital signs: Vital Signs Temp 98.4 F 05/04/22 13:00 Pulse 81 05/04/22 13:00 Resp 16 05/04/22 13:00 BP 118/65 05/04/22 13:00 Pulse Ox 94 L 05/04/22 13:00 FiO2 Intake & Output 05/03/22 05/04/22 05/04/22 18:59 06:59 18:59 Weight 78.925 kg 78.925 kg - Exam Patient is slightly groggy, but in no distress. He does wake up, and answers appropriately with low volume voice. Patient's visual cardona are not full on confrontation. No neglect on double simultaneous stimulation. Yesterday patient had right homonymous hemianopia. Today the visual deficits have resolved. - Labs CBC & Chem 7: 05/04/22 05:34 05/04/22 05:34 Labs: Abnormal Lab Results - Last 24 Hours (Table) 05/03/22 05/04/22 05/04/22 Range/Units Unknown 05:34 05:34 WBC 14.30 H (4.50-10.00) X 10*3/uL Immature Gran # 0.13 H (0.00-0.04) X 10*3/uL Neutrophils # 11.47 H (1.80-7.70) X 10*3/uL Lymphocytes # 0.45 L (0.90-5.00) X 10*3/uL Monocytes # 2.24 H (0.20-1.00) X 10*3/uL Eosinophils # 0 L (0.04-0.35) X 10*3/uL Sodium 127 L (135-145) mmol/L Chloride 91 L (96-109) mmol/L Anion Gap 9.90 L (10.00-18.00) mmol/L BUN/Creatinine Ratio 25.50 H (12.00-20.00) Ratio Calcium 8.4 L (8.7-10.3) mg/dL AST 73 H (14-35) U/L Total Protein 5.3 L (6.2-8.2) g/dL Albumin 3.2 L (3.8-4.9) g/dL Albumin/Globulin Ratio 1.52 L (1.60-3.17) g/dL Urine Protein 1+ H (Negative) Urine WBC 6 H (0-5) /hpf Urine Bacteria Rare H (None) /hpf Hyaline Casts 25 H (0-2) /lpf Urine Mucus Moderate H (None) /hpf Assessment and Plan Assessment: * Episode of decreased level of consciousness, unclear etiology, rule out TIA, rule out seizure versus transient encephalopathy. * Subdural hygroma, left frontal parietal region, with depth of 0.6 cm. No acute component noted in the left subdural hygroma. * Reported recurrent falls * Paroxysmal atrial flutter/fibrillation. Patient on Eliquis. Patient had abnormal Holter monitoring on 02/23/2020 with paroxysmal atrial flutter with rapid ventricular response. * History of left sided craniotomy of unclear cause. This happened 50 years ago (per patient in 1970, when he was in the [place]) * Right homonymous hemianopia, completely resolved. Therefore ? possibly was a TIA. * Blind left eye, chronic since 1970. * Hyponatremia, slightly improved 127 (yesterday 125) * Chronic left shoulder pathology * COPD * Hyperlipidemia * Psych history * X tobacco use. Plan: * Patient's left frontal hygroma has been stable since yesterday. There is no acute blood products noted. Patient had a possible TIA manifesting with transient right homonymous hemianopia, that has resolved. We will resume Eliquis. Benefits outweigh the risks. * EEG was performed today. Preliminary report mentions about amplitude asymmetry with left focal slowing suggestive of focal cortical neuronal dysfunction and possible breach rhythm. No epileptiform activity was seen. Continue Keppra 500 mg twice a day. * Keppra level pending. * Repeat CT head performed today revealed prominence of the subdural space left frontal parietal region which is felt to reflect subdural hygroma rather than subacute subdural hematoma. No acute intracranial hemorrhages seen. * For hyponatremia, would defer to IM. * Suggest orthopedic consultation for left shoulder pain. Would defer to IM for some chest pain. * Dr. Kaden Acosta to resume neurology service in the morning.
[2022-05-05] MEDS: hydroCHLOROthiazide 25 MG TAB PO SCH (09:12)
[2022-05-05] MEDS: CHOLECALCIFEROL 25 MCG (1000 IU) TABLET PO SCH (09:12)
[2022-05-05] MEDS: levETIRAcetam 500 MG TAB PO SCH ×2 (09:12→21:16)
[2022-05-05] MEDS: ASCORBIC ACID 500 MG TAB PO SCH ×2 (09:12→21:16)
[2022-05-05] MEDS: APIXABAN 5 MG TAB PO SCH ×2 (09:12→21:16)
[2022-05-05] MEDS: ZINC SULFATE 220 MG CAP PO SCH (09:12)
[2022-05-05] MEDS: PANTOPRAZOLE 40 MG/10 ML VIAL IV SCH (09:13)
[2022-05-05] MEDS: METOPROLOL SUCCINATE (ER) 50 MG TAB.ER.24H PO SCH (09:13)
[2022-05-05] MEDS: LORATADINE 10 MG TAB PO SCH (09:13)
--- NOTE | 2022-05-05 11:35 | EEG ---
ELECTROENCEPHALOGRAM REPORT PREAMBLE: This is an 82-year-old male with falls and subdural hematoma. This study is performed to evaluate for any epileptiform activity. EEG FINDINGS: This is a 21-channel digital EEG recording with video component, utilizing 10/20 international system with referential and bipolar montages. Background consists of well developed, well regulated moderate voltage activity in 8 hertz alpha. Background is posterior dominant and reactive to eye opening and closing. There is a slight amplitude asymmetry with higher amplitude activity in the left temporal region, suggestive of breach rhythm due to previous craniotomy defect. Some persistent focal slowing was seen in the left temporal region. No definitive epileptiform activity was seen. Some stage 2 sleep was seen with presence of sleep spindles. EKG channel showed no obvious arrhythmia. Photic stimulation and hyperventilation were not done. IMPRESSION: This is a mildly abnormal EEG due to the presence of amplitude asymmetry with relatively higher amplitude activity with focal slowing involving the left temporal region, suggestive of focal cortical neuronal dysfunction and likely related to underlying breach rhythm from previous craniotomy defect. No obvious epileptiform activity was seen. MMODL / IJN: [id number] / [facility] CENTERClaudette
--- NOTE | 2022-05-05 18:05 | P.PN ---
Progress Note - Text Progress Note Date: 05/04/22 Presenting complaint: Altered mental status Hospital course: I assumed the care of the patient today from sound physicians as patient was changed from observation to inpatient. 05/04/2022: Patient laying in bed. Able to answer simple questions. He knows that in the hospital, the year, can give his name, and season. As per the EMS report he has been falling at the assisted living where he lives. He was found with the staff. A bit of altered mentation. Per neurology Dr. Chacon patient chaudhry d r homonymous hemianopia yesterday which is resolved today. Possibility of TIA. No family at the bedside. Eliquis is being resumed. Active Medications Acetaminophen (Acetaminophen Tab 325 Mg Tab) 650 mg PO Q6HR PRN PRN Reason: Mild Pain or Fever > 100.5 Amantadine HCl (Amantadine Hcl 100 Mg Cap) 100 mg PO DAILY [facility] Last Admin: 05/04/22 13:42 Dose: 100 mg Apixaban (Apixaban 5 Mg Tab) 5 mg PO BID [facility]; Protocol Ascorbic Acid (Ascorbic Acid 500 Mg Tab) 500 mg PO BID [facility] Last Admin: 05/04/22 09:49 Dose: 500 mg Cholecalciferol (Cholecalciferol 25 Mcg (1000 Iu) Tablet) 50 mcg PO DAILY [facility] Last Admin: 05/04/22 09:49 Dose: 50 mcg Hydrochlorothiazide (Hydrochlorothiazide 25 Mg Tab) 25 mg PO DAILY [facility] Last Admin: 05/04/22 09:49 Dose: 25 mg Sodium Chloride (Saline 0.9%) 1,000 mls @ 130 mls/hr IV .Q7H42M [facility] Last Admin: 05/04/22 10:26 Dose: Not Given Levetiracetam (Levetiracetam 500 Mg Tab) 500 mg PO BID [facility] Last Admin: 05/04/22 09:49 Dose: 500 mg Loratadine (Loratadine 10 Mg Tab) 10 mg PO DAILY [facility] Last Admin: 05/04/22 09:49 Dose: 10 mg Metoprolol Succinate (Metoprolol Succinate (Er) 50 Mg Tab.Er.24h) 50 mg PO DAILY [facility] Last Admin: 05/04/22 09:49 Dose: 50 mg Mirtazapine (Mirtazapine 15 Mg Tab) 30 mg PO HS [facility] Last Admin: 05/03/22 21:40 Dose: 30 mg Naloxone HCl (Naloxone 0.4 Mg/Ml 1 Ml Vial) 0.2 mg IV Q2M PRN PRN Reason: Opioid Reversal Pantoprazole Sodium (Pantoprazole 40 Mg/10 Ml Vial) 40 mg IV DAILY [facility] Last Admin: 05/04/22 09:49 Dose: 40 mg Risperidone (Risperidone 1 Mg Tab) 1 mg PO HS [facility] Last Admin: 05/03/22 21:39 Dose: 1 mg Zinc Sulfate (Zinc Sulfate 220 Mg Cap) 220 mg PO DAILY [facility] Last Admin: 05/04/22 09:49 Dose: 220 mg .On examination: VITAL SIGNS: [98.4, 69, 18, 118/63, 94% room air] GENERAL APPEARANCE: Laying in bed, awake, tired HEENT: Normal external appearance of nose and ear. Oral cavity normal EYES: Pupils equal. Conjunctiva normal. NECK: JVD not raised. Mass not palpable. RESPIRATORY: Respiratory effort normal. Lungs decreased breath sounds CARDIOVASCULAR: First and second sounds normal. No edema. ABDOMEN: Soft. Liver and spleen not palpable. No tenderness. No mass palpable. PSYCHIATRY: Patient able to answer simple questions. INVESTIGATIONS, reviewed in the clinical context: CT brain: Prominence of the subdural space left frontal parietal region some felt to reflect subdural hygroma rather than subacute subdural hematoma. White count 14.3 hemoglobin 13.5 platelets Radha 9 sodium 127 potassium 3.5 creatinine 1.0 albumin 3.[address]: DJD changes of cervical spine. No osseous abnormality. No stroke. Assessment and plan: -Altered mental status. Possible TIA. . Follow with neurology. -Subacute subdural hematoma, Repeat CT unchanged. -COPD DuoNeb -Cognitive impairment -Schizophrenia Risperdal -Seizure disorder Keppra -Persistent atrial fibrillation Eliquis, Toprol-XL -DO NOT RESUSCITATE Seen by neurologist Dr. Balderrama. [place] to be TIA. Eliquis to be resumed. Other medications to continue.
--- NOTE | 2022-05-05 18:07 | P.PN ---
Progress Note - Text Progress Note Date: 05/05/22 Presenting complaint: Altered mental status Hospital course: I assumed the care of the patient today from sound physicians as patient was changed from observation to inpatient. 05/04/2022: Patient laying in bed. Able to answer simple questions. He knows that in the hospital, the year, can give his name, and season. As per the EMS report he has been falling at the assisted living where he lives. He was found with the staff. A bit of altered mentation. Per neurology Dr. Chacon patient chaudhry d r homonymous hemianopia yesterday which is resolved today. Possibility of TIA. No family at the bedside. Eliquis is being resumed. 05/05/2022: Laying in bed. Able to answer simple questions. On eliquis. Patient will be returning to [facility]. Eating some. Active Medications Acetaminophen (Acetaminophen Tab 325 Mg Tab) 650 mg PO Q6HR PRN PRN Reason: Mild Pain or Fever > 100.5 Albuterol/Ipratropium (Ipratropium-Albuterol 3 Ml Neb) 3 ml INHALATION BID ON LICENSE OF [facility] Amantadine HCl (Amantadine Hcl 100 Mg Cap) 100 mg PO DAILY [facility] Last Admin: 05/05/22 09:13 Dose: 100 mg Apixaban (Apixaban 5 Mg Tab) 5 mg PO BID [facility]; Protocol Last Admin: 05/05/22 09:12 Dose: 5 mg Ascorbic Acid (Ascorbic Acid 500 Mg Tab) 500 mg PO BID [facility] Last Admin: 05/05/22 09:12 Dose: 500 mg Cholecalciferol (Cholecalciferol 25 Mcg (1000 Iu) Tablet) 50 mcg PO DAILY [facility] Last Admin: 05/05/22 09:12 Dose: 50 mcg Hydrochlorothiazide (Hydrochlorothiazide 25 Mg Tab) 25 mg PO DAILY [facility] Last Admin: 05/05/22 09:12 Dose: 25 mg Levetiracetam (Levetiracetam 500 Mg Tab) 500 mg PO BID [facility] Last Admin: 05/05/22 09:12 Dose: 500 mg Loratadine (Loratadine 10 Mg Tab) 10 mg PO DAILY [facility] Last Admin: 05/05/22 09:13 Dose: 10 mg Metoprolol Succinate (Metoprolol Succinate (Er) 50 Mg Tab.Er.24h) 50 mg PO DAILY [facility] Last Admin: 05/05/22 09:13 Dose: 50 mg Mirtazapine (Mirtazapine 15 Mg Tab) 30 mg PO HS [facility] Last Admin: 05/04/22 21:42 Dose: 30 mg Naloxone HCl (Naloxone 0.4 Mg/Ml 1 Ml Vial) 0.2 mg IV Q2M PRN PRN Reason: Opioid Reversal Risperidone (Risperidone 1 Mg Tab) 1 mg PO HS [facility] Last Admin: 05/04/22 21:42 Dose: 1 mg Zinc Sulfate (Zinc Sulfate 220 Mg Cap) 220 mg PO DAILY [facility] Last Admin: 05/05/22 09:12 Dose: 220 mg .On examination: VITAL SIGNS: 98.9, 73, 16, 1 28 x 63, 94% room air GENERAL APPEARANCE: Laying in bed, awake, tired HEENT: Normal external appearance of nose and ear. Oral cavity normal EYES: Pupils equal. Conjunctiva normal. NECK: JVD not raised. Mass not palpable. RESPIRATORY: Respiratory effort normal. Lungs decreased breath sounds CARDIOVASCULAR: First and second sounds normal. No edema. ABDOMEN: Soft. Liver and spleen not palpable. No tenderness. No mass palpable. PSYCHIATRY: Patient able to answer simple questions. INVESTIGATIONS, reviewed in the clinical context: CT brain: Prominence of the subdural space left frontal parietal region some felt to reflect subdural hygroma rather than subacute subdural hematoma. White count 14.3 hemoglobin 13.5 platelets Radha 9 sodium 127 potassium 3.5 creatinine 1.0 albumin 3.[address]: DJD changes of cervical spine. No osseous abnormality. No stroke. Assessment and plan: -Altered mental status. Possible TIA. . Follow with neurology. -Subacute subdural hematoma, Repeat CT unchanged. -COPD DuoNeb -Cognitive impairment -Schizophrenia Risperdal -Seizure disorder Keppra -Persistent atrial fibrillation Eliquis, Toprol-XL -DO NOT RESUSCITATE Continue current medications. Have the patient sit up in a chair. Encourage oral intake.
[2022-05-05] MEDS: IPRATROPIUM-ALBUTEROL 3 ML NEB INHALATION SCH (19:49)
[2022-05-05] MEDS: risperiDONE 1 MG TAB PO SCH (21:16)
[2022-05-05] MEDS: MIRTAZAPINE 15 MG TAB PO SCH (21:16)
[2022-05-06] MEDS: IPRATROPIUM-ALBUTEROL 3 ML NEB INHALATION SCH ×2 (08:04→20:03)
[2022-05-06] MEDS: hydroCHLOROthiazide 25 MG TAB PO SCH (08:58)
[2022-05-06] MEDS: METOPROLOL SUCCINATE (ER) 50 MG TAB.ER.24H PO SCH (08:58)
[2022-05-06] MEDS: CHOLECALCIFEROL 25 MCG (1000 IU) TABLET PO SCH (08:58)
[2022-05-06] MEDS: ASCORBIC ACID 500 MG TAB PO SCH ×2 (08:58→22:03)
[2022-05-06] MEDS: APIXABAN 5 MG TAB PO SCH ×2 (08:58→22:03)
[2022-05-06] MEDS: LORATADINE 10 MG TAB PO SCH (08:58)
[2022-05-06] MEDS: ZINC SULFATE 220 MG CAP PO SCH (08:58)
[2022-05-06] MEDS: levETIRAcetam 500 MG TAB PO SCH ×2 (08:58→22:03)
--- NOTE | 2022-05-06 13:59 | XR ---
EXAMINATION TYPE: XR humerus LT, XR shoulder complete LT DATE OF EXAM: 05/06/2022 1:36 PM INDICATION: Patient age:Male; 82 years old; Reason for study: Decreased mobility/pain; COMPARISON: None TECHNIQUE: The left humerus was examined in frontal and lateral projections. Left Shoulder was evaluated in frontal lateral and scapular Y. FINDINGS: Chronic appearing deformity of the proximal left humerus with erosion of the humeral head. The glenoid appears intact. No evidence of acute fracture. The visualized chest are unremarkable. The deformity itself may be subluxed anteriorly given scapular Y view. IMPRESSION: There is erosive changes to the left humeral head with deformity of the head itself. Additionally the re is felt to possibly be subluxation of this deformed humeral head anteriorly.
--- NOTE | 2022-05-06 19:35 | P.PN ---
Progress Note - Text Progress Note Date: 05/06/22 Presenting complaint: Altered mental status Hospital course: I assumed the care of the patient today from sound physicians as patient was changed from observation to inpatient. 05/04/2022: Patient laying in bed. Able to answer simple questions. He knows that in the hospital, the year, can give his name, and season. As per the EMS report he has been falling at the assisted living where he lives. He was found with the staff. A bit of altered mentation. Per neurology Dr. Chacon patient chaudhry d r homonymous hemianopia yesterday which is resolved today. Possibility of TIA. No family at the bedside. Eliquis is being resumed. 05/05/2022: Laying in bed. Able to answer simple questions. On eliquis. Patient will be returning to [facility]. Eating some. 05/06/2022: Patient requiring full assist. Nursing concern about the same. PTOT. clinical application manager to review discharge disposition. Eating about 25%. Active Medications Acetaminophen (Acetaminophen Tab 325 Mg Tab) 650 mg PO Q6HR PRN PRN Reason: Mild Pain or Fever > 100.5 Albuterol/Ipratropium (Ipratropium-Albuterol 3 Ml Neb) 3 ml INHALATION RT-BID [facility] Last Admin: 05/06/22 08:04 Dose: 3 ml Amantadine HCl (Amantadine Hcl 100 Mg Cap) 100 mg PO DAILY [facility] Last Admin: 05/06/22 08:58 Dose: 100 mg Apixaban (Apixaban 5 Mg Tab) 5 mg PO BID [facility]; Protocol Last Admin: 05/06/22 08:58 Dose: 5 mg Ascorbic Acid (Ascorbic Acid 500 Mg Tab) 500 mg PO BID [facility] Last Admin: 05/06/22 08:58 Dose: 500 mg Cholecalciferol (Cholecalciferol 25 Mcg (1000 Iu) Tablet) 50 mcg PO DAILY [facility] Last Admin: 05/06/22 08:58 Dose: 50 mcg Hydrochlorothiazide (Hydrochlorothiazide 25 Mg Tab) 25 mg PO DAILY [facility] Last Admin: 05/06/22 08:58 Dose: 25 mg Levetiracetam (Levetiracetam 500 Mg Tab) 500 mg PO BID [facility] Last Admin: 05/06/22 08:58 Dose: 500 mg Loratadine (Loratadine 10 Mg Tab) 10 mg PO DAILY [facility] Last Admin: 05/06/22 08:58 Dose: 10 mg Metoprolol Succinate (Metoprolol Succinate (Er) 50 Mg Tab.Er.24h) 50 mg PO DAILY [facility] Last Admin: 05/06/22 08:58 Dose: 50 mg Mirtazapine (Mirtazapine 15 Mg Tab) 30 mg PO HS [facility] Last Admin: 05/05/22 21:16 Dose: 30 mg Naloxone HCl (Naloxone 0.4 Mg/Ml 1 Ml Vial) 0.2 mg IV Q2M PRN PRN Reason: Opioid Reversal Risperidone (Risperidone 1 Mg Tab) 1 mg PO HS [facility] Last Admin: 05/05/22 21:16 Dose: 1 mg Zinc Sulfate (Zinc Sulfate 220 Mg Cap) 220 mg PO DAILY [facility] Last Admin: 05/06/22 08:58 Dose: 220 mg .On examination: VITAL SIGNS: 97.7, 66, 16, 1 32 x 62, 97% room air GENERAL APPEARANCE: In a recliner, comfortable HEENT: Normal external appearance of nose and ear. Oral cavity normal EYES: Pupils equal. Conjunctiva normal. NECK: JVD not raised. Mass not palpable. RESPIRATORY: Respiratory effort normal. Lungs decreased breath sounds CARDIOVASCULAR: First and second sounds normal. No edema. ABDOMEN: Soft. Liver and spleen not palpable. No tenderness. No mass palpable. PSYCHIATRY: Patient able to answer occasional questions. INVESTIGATIONS, reviewed in the clinical context: CT brain: Prominence of the subdural space left frontal parietal region some felt to reflect subdural hygroma rather than subacute subdural hematoma. White count 14.3 hemoglobin 13.5 platelets Radha 9 sodium 127 potassium 3.5 creatinine 1.0 albumin 3.[address]: DJD changes of cervical spine. No osseous abnormality. No stroke. Assessment and plan: -Altered mental status. Possible TIA. . Follow with neurology. -Subacute subdural hematoma, Repeat CT unchanged. -COPD DuoNeb -Essential hypertension Toprol-XL. Stop chlorothiazide. Start lisinopril 5 mg daily at bedtime -Chronic Cognitive impairment -Schizophrenia Risperdal -Seizure disorder Keppra -Persistent atrial fibrillation Eliquis, Toprol-XL -Hyponatremia DC hydrochlorothiazide. -DO NOT RESUSCITATE -Disposition: PT OT consulted patient case coordinator to see patient will require rehab DC hydrochlorothiazide. Start lisinopril 5 mg daily at bedtime. PTOT consulted. clinical application manager to evaluate for disposition. Normal saline overnight.
[2022-05-06] MEDS ORDERED: SODIUM CHLORIDE 0.9% 1,000 ML IV SCH (19:45)
[2022-05-06] MEDS: lisinopriL 5 MG TAB PO SCH (22:03)
[2022-05-06] MEDS: risperiDONE 1 MG TAB PO SCH (22:03)
[2022-05-06] MEDS: MIRTAZAPINE 15 MG TAB PO SCH (22:03)
[2022-05-07] MEDS: IPRATROPIUM-ALBUTEROL 3 ML NEB INHALATION SCH ×2 (07:24→19:31)
[2022-05-07 07:40] LABS: African American GFR (CKD) >90 (>60 ml/min/1.73 sqM); Anion Gap 6 mmol/L; Blood Urea Nitrogen 20 mg/dL (9-20); Calcium 7.7 mg/dL (8.4-10.2); Carbon Dioxide 24 mmol/L (22-30); Chloride 101 mmol/L (98-107); Glucose 103 mg/dL (74-99); Non-African American GFR(CKD) >90 (>60 ml/min/1.73 sqM); Potassium 3.2 mmol/L (3.5-5.1); Sodium 131 mmol/L (137-145)
[2022-05-07 07:42] LABS: Basophils % (A) 0 %; Eosinophils # (A) 0.1 k/uL (0-0.7); Eosinophils % (A) 1 %; HCT 37.1 % (39.0-53.0); HGB 12.7 gm/dL (13.0-17.5); Lymphocytes # (A) 0.8 k/uL (1.0-4.8); Lymphocytes % (A) 9 %; MCH 31.5 pg (25.0-35.0); MCHC 34.2 g/dL (31.0-37.0); Monocytes # (A) 1.1 k/uL (0-1.0); Monocytes % (A) 13 %; Neutrophils # (A) 6.4 k/uL (1.3-7.7); Neutrophils % (A) 74 %; Platelet Count 245 k/uL (150-450); RBC 4.03 m/uL (4.30-5.90); RDW 13.3 % (11.5-15.5); WBC 8.7 k/uL (3.8-10.6)
[2022-05-07] MEDS: ZINC SULFATE 220 MG CAP PO SCH (08:22)
[2022-05-07] MEDS: ASCORBIC ACID 500 MG TAB PO SCH ×2 (08:22→21:26)
[2022-05-07] MEDS: CHOLECALCIFEROL 25 MCG (1000 IU) TABLET PO SCH (08:22)
[2022-05-07] MEDS: APIXABAN 5 MG TAB PO SCH ×2 (08:22→21:26)
[2022-05-07] MEDS: METOPROLOL SUCCINATE (ER) 50 MG TAB.ER.24H PO SCH (08:22)
[2022-05-07] MEDS: levETIRAcetam 500 MG TAB PO SCH ×2 (08:22→21:26)
[2022-05-07] MEDS ORDERED: Potassium Replacement Protocol 1 EACH MISC MISCELLANE PRN (10:51)
--- NOTE | 2022-05-07 10:58 | P.CNOR ---
History of Present Illness - [facility] Consult date: 05/07/22 Consult reason: other (Left shoulder pain, chronic) History of present illness: Patient is a very pleasant 82-year-old male who seen and examined at bedside. 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 The patient has a long history of left shoulder pain but is not having worsening over the past couple of months. Patient was admitted regards to his subacute or chronic frontal subdural hematoma and recurrent falls with hyponatremia and hypokalemia. His history of depression and schizophrenia. He is also complaining of left shoulder pain and we're involved case. Patient says that he had issues with his left shoulder when he was a young child in his teens. He initially had a problem with his shoulder. He also had surgery that he thinks was in the mid at his left shoulder as well. He says he is not been able to use his shoulder well for many years over decades. He says over the past couple months he's been having some worsening in his left shoulder and decreased range of motion and function. He denies any new injury or specific trauma. The pain generally occurs when he gets jostled or has to move his left arm. He had surgery on his left shoulder which he believes was in 1994. He is unsure of the procedure. I spoke with sister who is a caregiver in regard to this and she is not sure what type of procedure he had. Review of Systems Currently denies any chest pain shortness of breath. He has very limited motion at his left shoulder. He is able to move his elbow wrist and hand and left side. He denies new complaints at his upper extremities Past Medical History Past Medical History: COPD, Hyperlipidemia, Memory Impairment, Musculoskeletal Disorder (Chronic issues at his left shoulder with history of prior surgery in the mid ) History of Any Multi-Drug Resistant Organisms: None Reported Past Surgical History: No Surgical Hx Reported Past Psychological History: Depression, Schizophrenia Smoking Status: Unknown if ever smoked Past Alcohol Use History: None Reported Past Drug Use History: None Reported - Past Family History family Family Medical History: Unable to Obtain Medications and Allergies Home Medications Medication Instructions Recorded Confirmed Type Apixaban [Eliquis] 5 mg PO BID 05/03/22 05/03/22 History Ascorbic Acid [Vitamin C] 500 mg PO BID 05/03/22 05/03/22 History Benzoyl Peroxide Liquid 10% Wash 1 applic TOPICAL DAILY 05/03/22 05/03/22 History Cholecalciferol [Vitamin D3 (25 50 mcg PO DAILY 05/03/22 05/03/22 History Mcg = 1000 Iu)] Coricidin Hbp Chest Dilan&Cough 1 tab PO BID PRN 05/03/22 05/03/22 History Diclofenac Sodium Gel [Voltaren 2 gm TOPICAL TID PRN 05/03/22 05/03/22 History Gel] Hypochlor 0.02% 1 applic TOPICAL DAILY 05/03/22 05/03/22 History Loratadine [Claritin] 10 mg PO DAILY 05/03/22 05/03/22 History Metoprolol Succinate [Toprol XL] 50 mg PO DAILY 05/03/22 05/03/22 History Mirtazapine [Remeron] 30 mg PO HS 05/03/22 05/03/22 History Zinc Gluconate [Zinc] 50 mg PO DAILY 05/03/22 05/03/22 History amantadine HCL [Amantadine] 100 mg PO DAILY 05/03/22 05/03/22 History hydroCHLOROthiazide 25 mg PO DAILY 05/03/22 05/03/22 History levETIRAcetam [Keppra] 500 mg PO BID 05/03/22 05/03/22 History risperiDONE [RisperDAL] 1 mg PO HS 05/03/22 05/03/22 History Allergies Allergy/AdvReac Type Severity Reaction Status Date / Time No Known Allergies Allergy Unverified 05/03/22 15:38 Physical Examination Osteopathic Statement: *. No significant issues noted on an osteopathic structural exam other than those noted in the History and Physical/Consult. - Shoulder left Appearance: previous incision (Left shoulder has a prior incision is well- healed. There is no erythema there is no significant swelling there is no skin significant change. He is tender around the shoulder globally), other Tenderness with palpation: anterior Pain: with external rotation (He is able to move his elbow and wrist and hand well. He has significant pain with any motion of his shoulder beyond 10 or 20. He is able to flex his shoulder up passively to approximately 15 and with 0 abduction 0 external rotation) Results - Labs Labs: Abnormal Lab Results - Last 24 Hours (Table) 05/07/22 05/07/22 Range/Units 07:05 07:05 RBC 4.03 L (4.30-5.90) m/uL Hgb 12.7 L (13.0-17.5) gm/dL Hct 37.1 L (39.0-53.0) % Lymphocytes # 0.8 L (1.0-4.8) k/uL Monocytes # 1.1 H (0-1.0) k/uL Sodium 131 L (137-145) mmol/L Potassium 3.2 L (3.5-5.1) mmol/L Creatinine 0.61 L (0.66-1.25) mg/dL Glucose 103 H (74-99) mg/dL Calcium 7.7 L (8.4-10.2) mg/dL Microbiology - Last 24 Hours (Table) 05/03/22 18:30 Blood Culture - Preliminary Blood No Growth after 72 hours H & H 05/03/22 05/04/22 05/07/22 Range/Units 14:26 05:34 07:05 Hgb 13.8 13.5 12.7 L (13.0-17.5) gm/dL Hct 39.2 40.7 37.1 L (39.0-53.0) % Coagulation 05/03/22 Range/Units 14:26 INR 1.2 H (<1.2) Result Diagrams: 05/07/22 07:05 05/07/22 07:05 - Diagnostic results Shoulder x-ray: report reviewed, image reviewed (Left shoulder x-rays show chronic changes with essentially complete erosion of the humeral head. There is sclerosis around the margins. 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 His x-ray findings are chronic for him and there is near complete erosion of his humeral head or initial primary removal of his humeral head. I do not think that he is a new injury fracture or instability of his left shoulder but he does have some increased pain. This is likely due to jarring his shoulder with his multiple falls. He would likely be more trouble with a shoulder immobilizer or shoulder sling and we will order this for him. It is okay for him to try to mobilize with physical therapy to try to work on his transfers gait and balance. He may weight-bear as tolerated on his left upper extremity. He normally uses a walker but may need some modification to help accommodate for his left shoulder. With his recurrent falls and his great difficulty with mobilization and relation and will likely need placement posthospitalization. We do not have any plans for any surgical intervention at this point. I do not think we need further advanced imaging his left shoulder at this point He should continue with pain control, physical therapy and shoulder immobilizer as needed for comfort.
[2022-05-07] MEDS: POTASSIUM CHLORIDE ER 20 MEQ TAB.ER PO SCH ×4 (11:38→23:25)
--- NOTE | 2022-05-07 14:59 | P.PN ---
Progress Note - Text Progress Note Date: 05/07/22 Presenting complaint: Altered mental status Hospital course: I assumed the care of the patient today from sound physicians as patient was changed from observation to inpatient. 05/04/2022: Patient laying in bed. Able to answer simple questions. He knows that in the hospital, the year, can give his name, and season. As per the EMS report he has been falling at the assisted living where he lives. He was found with the staff. A bit of altered mentation. Per neurology Dr. Chacon patient chaudhry d r homonymous hemianopia yesterday which is resolved today. Possibility of TIA. No family at the bedside. Eliquis is being resumed. 05/05/2022: Laying in bed. Able to answer simple questions. On eliquis. Patient will be returning to [facility]. Eating some. 05/06/2022: Patient requiring full assist. Nursing concern about the same. PTOT. quarrying manager to review discharge disposition. Eating about 25%. 05/07/2022: In a recliner. Comfortable. quarrying manager looking into placement. OBRA completed. Active Medications Acetaminophen (Acetaminophen Tab 325 Mg Tab) 650 mg PO Q6HR PRN PRN Reason: Mild Pain or Fever > 100.5 Albuterol/Ipratropium (Ipratropium-Albuterol 3 Ml Neb) 3 ml INHALATION RT-BID [facility] Last Admin: 05/07/22 07:24 Dose: 3 ml Amantadine HCl (Amantadine Hcl 100 Mg Cap) 100 mg PO DAILY [facility] Last Admin: 05/07/22 08:23 Dose: 100 mg Apixaban (Apixaban 5 Mg Tab) 5 mg PO BID [facility]; Protocol Last Admin: 05/07/22 08:22 Dose: 5 mg Ascorbic Acid (Ascorbic Acid 500 Mg Tab) 500 mg PO BID [facility] Last Admin: 05/07/22 08:22 Dose: 500 mg Cholecalciferol (Cholecalciferol 25 Mcg (1000 Iu) Tablet) 50 mcg PO DAILY [facility] Last Admin: 05/07/22 08:22 Dose: 50 mcg Levetiracetam (Levetiracetam 500 Mg Tab) 500 mg PO BID [facility] Last Admin: 05/07/22 08:22 Dose: 500 mg Lisinopril (Lisinopril 5 Mg Tab) 5 mg PO HS [facility] Last Admin: 05/06/22 22:03 Dose: 5 mg Metoprolol Succinate (Metoprolol Succinate (Er) 50 Mg Tab.Er.24h) 50 mg PO DAILY [facility] Last Admin: 05/07/22 08:22 Dose: 50 mg Mirtazapine (Mirtazapine 15 Mg Tab) 30 mg PO [facility] Last Admin: 05/06/22 22:03 Dose: 30 mg Miscellaneous Information (Potassium Replacement Protocol 1 Each Misc) 1 each MISCELLANE DAILY PRN; Protocol PRN Reason: Per Protocol Naloxone HCl (Naloxone 0.4 Mg/Ml 1 Ml Vial) 0.2 mg IV Q2M PRN PRN Reason: Opioid Reversal Risperidone (Risperidone 1 Mg Tab) 1 mg PO [facility] Last Admin: 05/06/22 22:03 Dose: 1 mg Zinc Sulfate (Zinc Sulfate 220 Mg Cap) 220 mg PO DAILY [facility] Last Admin: 05/07/22 08:22 Dose: 220 mg .On examination: VITAL SIGNS: 98.1, 76, 15, 145-70, 97% room air GENERAL APPEARANCE: In a recliner, comfortable HEENT: Normal external appearance of nose and ear. Oral cavity normal EYES: Pupils equal. Conjunctiva normal. NECK: JVD not raised. Mass not palpable. RESPIRATORY: Respiratory effort normal. Lungs decreased breath sounds CARDIOVASCULAR: First and second sounds normal. No edema. ABDOMEN: Soft. Liver and spleen not palpable. No tenderness. No mass palpable. PSYCHIATRY: Patient able to answer occasional questions. INVESTIGATIONS, reviewed in the clinical context: 05/07/2022: White count 8.7 hemoglobin 12.7 potassium 3.2 sodium [address] brain: Prominence of the subdural space left frontal parietal region some felt to reflect subdural hygroma rather than subacute subdural hematoma. White count 14.3 hemoglobin 13.5 platelets Radha 9 sodium 127 potassium 3.5 creatinine 1.0 albumin 3.[address]: DJD changes of cervical spine. No osseous abnormality. No stroke. Assessment and plan: -Altered mental status. Possible TIA seen by neurology. -Subacute subdural hematoma, Repeat CT unchanged. -COPD DuoNeb -Essential hypertension Toprol-XL. Stop chlorothiazide. Start lisinopril 5 mg daily at bedtime -Chronic Cognitive impairment -Schizophrenia Risperdal -Seizure disorder Keppra -Persistent atrial fibrillation Eliquis, Toprol-XL -Hyponatremia DC hydrochlorothiazide. -DO NOT RESUSCITATE -Disposition: PT OT consulted gearcase assembler to see patient will require rehab PTOT consulted. quarrying manager to looking into disposition. Continue treatment plan.
--- NOTE | 2022-05-07 16:00 | P.PN ---
Subjective Progress Note Date: 05/07/22 I am seeing the patient for the first time during this admission. It seems patient has decreased level of consciousness and on CT he has subdural hygroma. He has history of Paroxysmal atrial fibrillation and is on eliquis. Per the nurse, no new neurological deficits and he is pending to be discharged to care home. Please refer to Dr. Chacon's note for further details. Patient denies of any new deficits. Has some headache over the bilateral frontal region. Objective - Vital Signs Vital signs: Vital Signs Temp 98.1 F 05/07/22 12:06 Pulse 76 05/07/22 12:06 Resp 15 05/07/22 12:06 BP 145/70 05/07/22 12:06 Pulse Ox 97 05/07/22 12:06 FiO2 21 05/04/22 19:50 Intake & Output 05/06/22 05/07/22 05/07/22 18:59 06:59 18:59 Other: Voiding Method Diaper Diaper Incontinent Incontinent # Voids 2 1 - Exam GENERAL: The patient is lying in bed and is not in acute distress. NEUROLOGICAL: Higher mental function: The patient is awake, alert, oriented to self and stated he was in the hospital. He stated the current year correctly but stated the ye ar is 2023. He is able to name objects (pen and watch). He is following simple commands. He has very low tone voice. No neglect or aphasia. Cranial nerves: No facial weakness. Very low tone voice. No dysarthria. Motor: The strength is able to lift right upper and bilateral lower extremities above gravity without deficits. Had hard time lifting the left eye upper extremity because shoulder issues. SOME OF THE WORK-UP DURING THIS HOSPITAL VISIT CONSISTED OF: * EEG is reported as abnormal. Mildly abnormal EEG due to the presence of amplitude asymmetry with relatively high amplitude activity with focal slowing involving the left temporal region, suggestive of focal cortical neuronal dysfunction and related to underlying breach rhythm from that craniotomy defect. No obvious epileptiform activity was seen. * Keppra level 26.6 (normal is 3-60). * CT head performed revealed prominence of the subdural space left frontal parietal region which is felt to reflect subdural hygroma rather than subacute subdural hematoma. No acute intracranial hemorrhages seen. - Labs CBC & Chem 7: 05/07/22 07:05 05/07/22 07:05 Labs: Abnormal Lab Results - Last 24 Hours (Table) 05/07/22 05/07/22 Range/Units 07:05 07:05 RBC 4.03 L (4.30-5.90) m/uL Hgb 12.7 L (13.0-17.5) gm/dL Hct 37.1 L (39.0-53.0) % Lymphocytes # 0.8 L (1.0-4.8) k/uL Monocytes # 1.1 H (0-1.0) k/uL Sodium 131 L (137-145) mmol/L Potassium 3.2 L (3.5-5.1) mmol/L Creatinine 0.61 L (0.66-1.25) mg/dL Glucose 103 H (74-99) mg/dL Calcium 7.7 L (8.4-10.2) mg/dL Microbiology - Last 24 Hours (Table) 05/03/22 18:30 Blood Culture - Preliminary Blood No Growth after 72 hours Assessment and Plan Assessment: * Encephalopathy of unknown etiology. He mentation has improved. It was suspected possible TIA vs seizure vs metabolic encephalopathy * Subdural hygroma, left frontal parietal region, with depth of 0.6 cm. No acute component noted in the left subdural hygroma likely result of falls. * Reported recurrent falls * Hyponatremia--improving (currently 131 and on presentation was 125) * Paroxysmal atrial flutter/fibrillation. Patient on Eliquis. Patient had abnormal Holter monitoring on 02/23/2020 with paroxysmal atrial flutter with rapid ventricular response. * History of left sided craniotomy of unclear cause. This happened 50 years ago (per patient in 1970, when he was in the [place]) * Reported Right homonymous hemianopia, completely resolved. Therefore ? possibly was a TIA. * Blind left eye, chronic since 1970. * Chronic left shoulder pathology * COPD * Hyperlipidemia * Psych history * X tobacco use. Plan: * Dr. Chacon recommended repeat CT head for today to rule out any bleeding. * Eliquis was resumed on 05/04/22 because of Benefits outweigh the risks. * Continue Keppra 500 mg twice a day. * For hyponatremia, would defer to IM. * Orthopedic is consulted for left shoulder pain. * Will defer the rest of medical management to the primary team. * Code status is DN&R. If CT head is unchanged and no further active acute or subacute bleeding, then no further neurological work-up. The plan is discussed with the patient's nurse. Time with Patient: Less than 30
--- NOTE | 2022-05-07 21:00 | CT ---
"EXAMINATION TYPE: CT brain wo con DATE OF EXAM: 05/07/2022 HISTORY: confusion on eliquis. rule out acute bleed CT DLP: 1329 mGycm. Automated Exposure Control for Dose Reduction was Utilized. TECHNIQUE: CT scan of the head is performed without contrast. COMPARISON: CT brain 3 days earlier.. 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 Focal encephalomalacia at this level is again seen. No acute intracranial hemo rrhage or midline shift. Mild to moderate ventricular and sulcal prominence redemonstrated with left -sided extra-axial fluid collection slightly more hyperdense on current study suggests possible acute on chronic subdural hemorrhage. Minimal imaging monitoring is advised. Moderate to severe low-attenu ation in the deep and periventricular white matter. Focal low signal from prior ASSEMBLY INSPECTOR shunt catheter damon ng the inferior right parietal temporal region crossing the midline and terminating near left-sided a neurysm clips. Scleral calcification bilateral globes demonstrated. Nasal septal deviation again seen . Paranasal sinuses grossly clear. Soft tissue density left extra auditory canal favored cerumen. IMPRESSION: No acute intracranial hemorrhage or midline shift. Postsurgical changes with atrophy and chronic small vessel ischemic change all redemonstrated. Superior left extra-axial fluid collection suspected subdural collection is similar in size to prior study but slightly more hyperdense suggesti ng possible acute on chronic injury or bleed. At minimum continued CT imaging monitoring is advised. A Yellow level critical message alert has been initiated for Joey Tapia MD via the Attachments.me 36 [id number] | Critical Results System on 05/07/2022 8:58 PM. This message alert has been sent to Joey Tapia MD via the preferences provided by the clinician for the receipt of Radiology Critical Findings. [facility] ID [id number]."
[2022-05-07] MEDS: lisinopriL 5 MG TAB PO SCH (21:26)
[2022-05-07] MEDS: risperiDONE 1 MG TAB PO SCH (21:26)
[2022-05-07] MEDS: MIRTAZAPINE 15 MG TAB PO SCH (21:27)
[2022-05-08 06:08] LABS: African American GFR (CKD) >90 (>60 ml/min/1.73 sqM); Anion Gap 6 mmol/L; Blood Urea Nitrogen 16 mg/dL (9-20); Calcium 7.8 mg/dL (8.4-10.2); Carbon Dioxide 25 mmol/L (22-30); Chloride 104 mmol/L (98-107); Glucose 101 mg/dL (74-99); Non-African American GFR(CKD) 84 (>60 ml/min/1.73 sqM); Potassium 3.7 mmol/L (3.5-5.1); Sodium 135 mmol/L (137-145)
[2022-05-08] MEDS: IPRATROPIUM-ALBUTEROL 3 ML NEB INHALATION SCH ×2 (07:12→21:13)
[2022-05-08] MEDS: METOPROLOL SUCCINATE (ER) 50 MG TAB.ER.24H PO SCH (08:15)
[2022-05-08] MEDS: CHOLECALCIFEROL 25 MCG (1000 IU) TABLET PO SCH (08:15)
[2022-05-08] MEDS: ASCORBIC ACID 500 MG TAB PO SCH ×2 (08:15→21:06)
[2022-05-08] MEDS: ZINC SULFATE 220 MG CAP PO SCH (08:15)
[2022-05-08] MEDS: levETIRAcetam 500 MG TAB PO SCH ×2 (08:15→21:06)
[2022-05-08] MEDS: APIXABAN 5 MG TAB PO SCH (08:15)
--- NOTE | 2022-05-08 08:51 | P.PN ---
Progress Note - Text Progress Note Date: 05/08/22 Orthopedics: History of present illness: Patient is a pleasant 82-year-old male with history of dementia who is seen and examined at bedside. Evaluation of his left shoulder. He continues to have pain in his left shoulder. A shoulder immobilizer was obtained yesterday. Nursing is planning to place a shoulder immobilizer after the patient eats breakfast this morning. It was discussed with the patient he may wear this for comfort support as needed. Patient is currently planned to be discharged to a rehabilitation facility. Patient is known have chronic left shoulder pain. He has a history of previous surgical intervention in his left shoulder most likely around 1994. During his admission he's been treated evaluated for subacute or chronic frontal subdural hematoma and recurrent falls and hyponatremia hypokalemia. Physical Exam: Patient is awake, alert, and oriented 3 Vital signs stable Incision over the left shoulder is well-healed No significant swelling or evidence of skin changes over the left shoulder No erythema over the left shoulder Global tenderness to palpation over the left shoulder Patient is currently holding his left arm towards his body for comfort with his right arm Significant pain with passive and active range of motion of the left shoulder Assessment: Chronic left shoulder pain with subacute increased pain History surgical intervention of the left shoulder Minimal range of motion of the left shoulder, chronic 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 Patient is known have significant chronic changes at his left shoulder with near complete erosion of the humeral head or initial primary removal of his humeral head. He has a history of previous surgical intervention in his left shoulder around approximately 1994. He tenses chronic left shoulder pain with more increased pain recently. Currently, a shoulder mobilizer was ordered for the patient. This will be placed by nursing this morning after his breakfast. He may utilize this for comfort and support as needed. He may also continue working with physical therapy and may weight-bear as tolerated with his left upper extremity. He may continue utilize a walker to aid in ambulation but this will remain some modification to help accommodate his left shoulder. Patient is currently planning for discharge to a rehabilitation facility most likely today. It was discussed with nursing patient is clear for discharge from an orthopedic standpoint. We do not currently planned for any surgical intervention at his left shoulder. We are not currently planning for further imaging during his adm ission. We will currently planned to have him follow-up in the outpatient setting on an as-needed basis. The patient's symptoms fail to improve or he has been exacerbation of his symptoms, patient may follow-up with Elver Ponce PA-C or Dr. Benson Natarajan at [facility] following discharge.
[2022-05-08] MEDS ORDERED: POTASSIUM CHLORIDE ER 20 MEQ TAB.ER PO ONE (09:00)
--- NOTE | 2022-05-08 13:25 | P.PN ---
Subjective Progress Note Date: 05/08/22 The patient is seen at bedside and per patient's nurse mentation is improving. Patient denies of headache. Patient had repeat CT head and it is reported as acute intracranial hemorrhage or midline shift. Postsurgical changes with atrophy and chronic small vessel ischemic change all redemonstrated peers. Left extra-axial fluid collections suspected subdural collection is similar in size from prior study significant more hyperdense suggestive possible acute on chronic injury or bleed. At minimum continue CT imaging monitoring is advised. Objective - Vital Signs Vital signs: Vital Signs Temp 97.7 F 05/08/22 11:05 Pulse 70 05/08/22 11:05 Resp 16 05/08/22 11:05 BP 127/77 05/08/22 11:05 Pulse Ox 97 05/08/22 11:05 FiO2 21 05/04/22 19:50 Intake & Output 05/07/22 05/08/22 05/08/22 18:59 06:59 18:59 Output Total 225 Balance -225 Output: Urine 225 Other: Voiding Method Diaper Incontinent Incontinent Incontinent External Catheter External Catheter # Voids 1 1 1 # Bowel Movements 1 - Exam GENERAL: The patient is lying in bed and is not in acute distress. NEUROLOGICAL: Higher mental function: The patient is awake, alert, oriented to self and stated he was in the hospital. He stated the current year correctly but stated the year is 2023 again but later stated 2020. He is following simple commands. . No neglect or aphasia. Cranial nerves: No facial weakness. Very low tone voice. No dysarthria. Motor: The strength is able to right upper and bilateral lower extremities above gravity without deficits. Had hard time lifting the left upper extremity because shoulder issues. SOME OF THE WORK-UP DURING THIS HOSPITAL VISIT CONSISTED OF: * EEG is reported as abnormal. Mildly abnormal EEG due to the presence of amplitude asymmetry with relatively high amplitude activity with focal slowing involving the left temporal region, suggestive of focal cortical neuronal dysfunction and related to underlying breach rhythm from that craniotomy defect. No obvious epileptiform activity was seen. * Keppra level 26.6 (normal is 3-60). * CT head performed revealed prominence of the subdural space left frontal parietal region which is felt to reflect subdural hygroma rather than subacute subdural hematoma. No acute intracranial hemorrhages seen. * Repeat CT head on 05/07/22 and it is reported as acute intracranial hemorrhage or midline shift. Postsurgical changes with atrophy and chronic small vessel ischemic change all redemonstrated peers. Left extra-axial fluid collections suspected subdural collection is similar in size from prior study significant more hyperdense suggestive possible acute on chronic injury or bleed. At minimum continue CT imaging monitoring is advised. I personally could not review CT because of issues with system. - Labs CBC & Chem 7: 05/07/22 07:05 05/08/22 05:15 Labs: Abnormal Lab Results - Last 24 Hours (Table) 05/08/22 Range/Units 05:15 Sodium 135 L (137-145) mmol/L Glucose 101 H (74-99) mg/dL Calcium 7.8 L (8.4-10.2) mg/dL Microbiology - Last 24 Hours (Table) 05/03/22 18:30 Blood Culture - Preliminary Blood No Growth after 96 hours Assessment and Plan Assessment: * Possible acute on chronic Subdural on repeated CT head. * Has hygroma, left frontal parietal region, with depth of 0.6 cm. His subdural result of repeated falls. * Encephalopathy of unknown etiology. He mentation has improved. It was suspected possible TIA vs seizure vs metabolic encephalopathy---mentation improved. * Reported recurrent falls * Hyponatremia--improving (currently 131 and on presentation was 125) * Paroxysmal atrial flutter/fibrillation. Patient on Eliquis. Patient had abnormal Holter monitoring on 02/23/2020 with paroxysmal atrial flutter with rapid ventricular response. * History of left sided craniotomy of unclear cause. This happened 50 years ago (per patient in 1970, when he was in the [place]) * Reported Right homonymous hemianopia, completely resolved. Therefore ? possib ly was a TIA. * Blind left eye, chronic since 1970. * Chronic left shoulder pathology * COPD * Hyperlipidemia * Psych history * X tobacco use. Plan: * Will get repeat CT head repeated for today to assess if any change in bleed size * I stopped Eliquis because of possible acute bleeding and risk outweigh the benefits. From neurological perspective recommend to avoid anticoagulation down the line since he has recurrent falls and with anticoagulation risk even goes up and the risk outweigh benefit to avoid any major bleed. Consider ASA 325mg daily in repeat CT is stable. If repeat CT head show drastic worsening of bleed or his condition, his sister would like neurosurgical evaluation which we do not have in our facility. But for now clinically doing better and will continue to monitor. Also he is DN&R and neurosurgery team will not operate on him in my opinion. * Continue Keppra 500 mg twice a day. * For hyponatremia, would defer to IM. * Orthopedic is consulted for left shoulder pain. * Will defer the rest of medical management to the primary team. * Code status is DN&R. The plan is discussed with the patient's primary attending and his nurse. I updated his sister (who is next of kin) via phone and agreed with plan above. Time with Patient: Less than 30
--- NOTE | 2022-05-08 16:29 | P.PN ---
Progress Note - Text Progress Note Date: 05/08/22 Presenting complaint: Altered mental status Hospital course: I assumed the care of the patient today from sound physicians as patient was changed from observation to inpatient. 05/04/2022: Patient laying in bed. Able to answer simple questions. He knows that in the hospital, the year, can give his name, and season. As per the EMS report he has been falling at the assisted living where he lives. He was found with the staff. A bit of altered mentation. Per neurology Dr. Chacon patient chaudhry d r homonymous hemianopia yesterday which is resolved today. Possibility of TIA. No family at the bedside. Eliquis is being resumed. 05/05/2022: Laying in bed. Able to answer simple questions. On eliquis. Patient will be returning to [facility]. Eating some. 05/06/2022: Patient requiring full assist. Nursing concern about the same. PTOT. research and evaluation manager to review discharge disposition. Eating about 25%. 05/07/2022: In a recliner. Comfortable. research and evaluation manager looking into placement. OBRA completed. 05/08/2022: Patient has computed tomography scan done yesterday evening. Received the orange alert this morning from radiology about possible bleed. Discussed with Dr. Acosta from neurology. Eliquis has been discontinued. I spoke to bases sister courtered and updated her. He agrees with discontinuing the eliquis. Repeat computed tomography scan to be done in 24 hours. Patient is awake. In bed comfortable. No new focal signs. Active Medications Acetaminophen (Acetaminophen Tab 325 Mg Tab) 650 mg PO Q6HR PRN PRN Reason: Mild Pain or Fever > 100.5 Albuterol/Ipratropium (Ipratropium-Albuterol 3 Ml Neb) 3 ml INHALATION RT-BID [facility] Last Admin: 05/08/22 07:12 Dose: 3 ml Amantadine HCl (Amantadine Hcl 100 Mg Cap) 100 mg PO DAILY [facility] Last Admin: 05/08/22 08:16 Dose: 100 mg Ascorbic Acid (Ascorbic Acid 500 Mg Tab) 500 mg PO BID [facility] Last Admin: 05/08/22 08:15 Dose: 500 mg Cholecalciferol (Cholecalciferol 25 Mcg (1000 Iu) Tablet) 50 mcg PO DAILY [facility] Last Admin: 05/08/22 08:15 Dose: 50 mcg Levetiracetam (Levetiracetam 500 Mg Tab) 500 mg PO BID [facility] Last Admin: 05/08/22 08:15 Dose: 500 mg Lisinopril (Lisinopril 5 Mg Tab) 5 mg PO [facility] Last Admin: 05/07/22 21:26 Dose: 5 mg Metoprolol Succinate (Metoprolol Succinate (Er) 50 Mg Tab.Er.24h) 50 mg PO DAILY [facility] Last Admin: 05/08/22 08:15 Dose: 50 mg Mirtazapine (Mirtazapine 15 Mg Tab) 30 mg PO HS [facility] Last Admin: 05/07/22 21:27 Dose: 30 mg Miscellaneous Information (Potassium Replacement Protocol 1 Each Misc) 1 each MISCELLANE DAILY PRN; Protocol PRN Reason: Per Protocol Naloxone HCl (Naloxone 0.4 Mg/Ml 1 Ml Vial) 0.2 mg IV Q2M PRN PRN Reason: Opioid Reversal Risperidone (Risperidone 1 Mg Tab) 1 mg PO [facility] Last Admin: 05/07/22 21:26 Dose: 1 mg Zinc Sulfate (Zinc Sulfate 220 Mg Cap) 220 mg PO DAILY [facility] Last Admin: 05/08/22 08:15 Dose: 220 mg .On examination: VITAL SIGNS: 97.7, 70, 16, 127.77, 97% room air GENERAL APPEARANCE: In bed, comfortable HEENT: Normal external appearance of nose and ear. Oral cavity normal EYES: Pupils equal. Conjunctiva normal. NECK: JVD not raised. Mass not palpable. RESPIRATORY: Respiratory effort normal. Lungs decreased breath sounds CARDIOVASCULAR: First and second sounds normal. No edema. ABDOMEN: Soft. Liver and spleen not palpable. No tenderness. No mass palpable. PSYCHIATRY: Patient able to answer occasional questions. NEUROLOGICAL: No facial asymmetry.Able to lift somewhat Both his arm. Moving his legs. INVESTIGATIONS, reviewed in the clinical context: CT brain [May 07] superior left extra-axial fluid collection suspected subdural collection is similar in size to prior study but slightly more hyperdense suggesting possible acute on chronic injury/bleed. 05/07/2022: White count 8.7 hemoglobin 12.7 potassium 3.2 sodium [address] brain: Prominence of the subdural space left frontal parietal region some felt to reflect subdural hygroma rather than subacute subdural hematoma. White count 14.3 hemoglobin 13.5 platelets Radha 9 sodium 127 potassium 3.5 creatinine 1.0 albumin 3.[address]: DJD changes of cervical spine. No osseous abnormality. No stroke. Assessment and plan: -Some suspicion of acute bleed in the subdural area with patient being back on eliquis. Discussed with neurology. Eliquis discontinued. Repeat computed tomography scan in 24 hours. -Altered mental status. Possible TIA seen by neurology. -Subacute subdural hematoma, Repeat CT unchanged. -COPD DuoNeb -Essential hypertension Toprol-XL. Stop chlorothiazide. Start lisinopril 5 mg daily at bedtime -Chronic Cognitive impairment -Schizophrenia Risperdal -Seizure disorder Keppra -Persistent atrial fibrillation Eliquis, Toprol-XL -Hyponatremia DC hydrochlorothiazide. -DO NOT RESUSCITATE -Disposition: PT OT consulted patient case coordinator to see patient will require rehab Eliquis discontinued. Discussed with Dr. Acosta from neurology. Spoke to patient's sister shattered over the phone. Discharged-oh. Repeat computed tomography scan in 24 hours. Spoke to the nurse. Total time spent today about 40 minutes with over 25 minutes of discussion.
--- NOTE | 2022-05-08 17:04 | CT ---
EXAMINATION TYPE: CT brain wo con DATE OF EXAM: 05/08/2022 COMPARISON: 05/07/2022 HISTORY: Acute confusional state, subdural hematoma CT DLP: 1504 mGycm Automated exposure control for dose reduction was used. Images of the brain obtained with no contrast. There is some mild widening of the subdural space over the left cerebral hemisphere. This measures up to 7 mm with relatively low attenuation and consistent with a chronic subdural hygroma. There is no significant mass effect. No midline shift. There is diffuse cerebral cortical atrophy. There is metal artifact from surgery at the left side greater wing of the sphenoid bone. There is left-sided tempor al craniotomy defect. There is hypodensity in the large area of the left anterior temporal lobe. IMPRESSION: Mild left side subdural hygroma without change compared to yesterday. No hemorrhage. 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 Previous surgery.
[2022-05-08] MEDS: risperiDONE 1 MG TAB PO SCH (21:06)
[2022-05-08] MEDS: MIRTAZAPINE 15 MG TAB PO SCH (21:06)
[2022-05-08] MEDS: lisinopriL 5 MG TAB PO SCH (21:06)
[2022-05-09 05:56] VITALS: BP 136/73; RESP 14; TEMP 98
[2022-05-09] MEDS: IPRATROPIUM-ALBUTEROL 3 ML NEB INHALATION SCH (07:40)
[2022-05-09] MEDS: ZINC SULFATE 220 MG CAP PO SCH (09:16)
[2022-05-09] MEDS: CHOLECALCIFEROL 25 MCG (1000 IU) TABLET PO SCH (09:16)
[2022-05-09] MEDS: levETIRAcetam 500 MG TAB PO SCH (09:16)
[2022-05-09] MEDS: METOPROLOL SUCCINATE (ER) 50 MG TAB.ER.24H PO SCH (09:16)
[2022-05-09] MEDS: ASCORBIC ACID 500 MG TAB PO SCH (09:16)
--- NOTE | 2022-05-09 11:50 | P.DS ---
Providers Date of admission: 05/03/22 17:56 Expected date of discharge: 05/09/22 Attending physician: Joey Tapia Consults: 05/03/22 17:52 Consult Physician Urgent Consulting Provider: Lee Chacon Consult Reason/Comments: Subdural hematoma Do you want consulting provider notified?: Already Contacted 05/06/22 11:49 Consult Physician Routine Consulting Provider: Misha Natarajan Consult Reason/Comments: decreased mobility with pain to left shoulder Do you want consulting provider notified?: Yes Primary care physician: Ari Baker [facility] Course: Presenting complaint: Altered mental status Hospital course: I assumed the care of the patient today from sound physicians as patient was changed from observation to inpatient. 05/04/2022: Patient laying in bed. Able to answer simple questions. He knows that in the hospital, the year, can give his name, and season. As per the EMS report he has been falling at the assisted living where he lives. He was found with the staff. A bit of altered mentation. Per neurology Dr. Chacon patient had r homonymous hemianopia yesterday which is resolved today. Possibility of TIA. No family at the bedside. Eliquis is being resumed. 05/05/2022: Laying in bed. Able to answer simple questions. On eliquis. Patient will be returning to [facility]. Eating some. 05/06/2022: Patient requiring full assist. Nursing concern about the same. PTOT. library manager to review discharge disposition. Eating about 25%. 05/07/2022: In a recliner. Comfortable. library manager looking into placement. OBRA completed. 05/08/2022: Patient has computed tomography scan done yesterday evening. Received the orange alert this morning from radiology about possible bleed. Discussed with Dr. Acosta from neurology. Eliquis has been discontinued. I spoke to bases sister shattered and updated her. He agrees with discontinuing the eliquis. Repeat computed tomography scan to be done in 24 hours. Patient is awake. In bed comfortable. No new focal signs. 05/09/2022: Comfortable. Repeat computed tomography scan done yesterday evening showing no bleed. Discussed with Dr. Acosta from neurology, stable for DC. Discussed with case liner. Has a bed available. Oral intake about 25%. Patient seen by orthopedics. Near complete erosion of the humeral head. Previous surgical intervention. Per orthopedics physical therapy. Weightbear ing to left upper extremity as tolerated. To follow up with Dr. Natarajan outpatient. Discussion and discharge planning more than 35 minutes .On examination: VITAL SIGNS: 98, 82, 14, 136/73, 94% room air GENERAL APPEARANCE: In bed, comfortable HEENT: Normal external appearance of nose and ear. Oral cavity normal EYES: Pupils equal. Conjunctiva normal. NECK: JVD not raised. Mass not palpable. RESPIRATORY: Respiratory effort normal. Lungs decreased breath sounds CARDIOVASCULAR: First and second sounds normal. No edema. ABDOMEN: Soft. Liver and spleen not palpable. No tenderness. No mass palpable. PSYCHIATRY: Patient able to answer occasional questions. NEUROLOGICAL: No facial asymmetry.Able to lift somewhat Both his arm. Moving his legs. INVESTIGATIONS, reviewed in the clinical context: CT brain [May 08]: No evidence of bleed CT brain [May 07] superior left extra-axial fluid collection suspected subdural collection is similar in size to prior study but slightly more hype rdense suggesting possible acute on chronic injury/bleed. 05/07/2022: White count 8.7 hemoglobin 12.7 potassium 3.2 sodium [address] brain: Prominence of the subdural space left frontal parietal region some felt to reflect subdural hygroma rather than subacute subdural hematoma. White count 14.3 hemoglobin 13.5 platelets Radha 9 sodium 127 potassium 3.5 creatinine 1.0 albumin 3.[address]: DJD changes of cervical spine. No osseous abnormality. No stroke. Assessment and plan: -Some suspicion of acute bleed in the subdural area with patient being back on eliquis.: Negative on repeat CT. Discussed with neurology and patient's sister. Eliquis discontinued. -Altered mental status. Possible TIA seen by neurology. -Subacute subdural hematoma, Repeat CT unchanged. -Chronic left shoulder pain with prior surgery 1994. Weightbearing as tolerated. Seen by Pamela from orthopedics. For outpatient follow-up. -COPD DuoNeb -Essential hypertension Toprol-XL. Stop chlorothiazide. Start lisinopril 5 mg daily at bedtime -Chronic Cognitive impairment -Schizophrenia Risperdal -Seizure disorder Keppra -Persistent atrial fibrillation Eliquis, Toprol-XL -Hyponatremia DC hydrochlorothiazide. -DO NOT RESUSCITATE Disposition: [place]/rehab Plan - Discharge Summary Discharge Rx Participant: No New Discharge Prescriptions: New Ipratropium-Albuterol Nebulize [Duoneb 0.5 mg-3 mg/3 ml Soln] 3 ml INHALATION RT-BID each Acetaminophen Tab [Tylenol] 650 mg PO Q6HR PRN tab PRN Reason: Mild Pain Or Fever > 100.5 lisinopriL [Zestril] 5 mg PO HS tab Continue Cholecalciferol [Vitamin D3 (25 Mcg = 1000 Iu)] 50 mcg PO DAILY Ascorbic Acid [Vitamin C] 500 mg PO BID Metoprolol Succinate [Toprol XL] 50 mg PO DAILY Diclofenac Sodium Gel [Voltaren Gel] 2 gm TOPICAL TID PRN PRN Reason: LEFT SHOULDER amantadine HCL [Amantadine] 100 mg PO DAILY risperiDONE [RisperDAL] 1 mg PO HS Mirtazapine [Remeron] 30 mg PO HS levETIRAcetam [Keppra] 500 mg PO BID Discontinued Apixaban [Eliquis] 5 mg PO BID Hypochlor 0.02% 1 applic TOPICAL DAILY Zinc Gluconate [Zinc] 50 mg PO DAILY Loratadine [Claritin] 10 mg PO DAILY hydroCHLOROthiazide 25 mg PO DAILY Coricidin Hbp Chest Dilan&Cough 1 tab PO BID PRN PRN Reason: CONGESTION/COUGH Benzoyl Peroxide Liquid 10% Wash 1 applic TOPICAL DAILY Discharge Medication List Ascorbic Acid [Vitamin C] 500 mg PO BID 05/03/22 [History] Cholecalciferol [Vitamin D3 (25 Mcg = 1000 Iu)] 50 mcg PO DAILY 05/03/22 [History] Diclofenac Sodium Gel [Voltaren Gel] 2 gm TOPICAL TID PRN 05/03/22 [History] Metoprolol Succinate [Toprol XL] 50 mg PO DAILY 05/03/22 [History] Mirtazapine [Remeron] 30 mg PO HS 05/03/22 [History] amantadine HCL [Amantadine] 100 mg PO DAILY 05/03/22 [History] levETIRAcetam [Keppra] 500 mg PO BID 05/03/22 [History] risperiDONE [RisperDAL] 1 mg PO HS 05/03/22 [History] Acetaminophen Tab [Tylenol] 650 mg PO Q6HR PRN tab 05/09/22 [Rx] Ipratropium-Albuterol Nebulize [Duoneb 0.5 mg-3 mg/3 ml Soln] 3 ml INHALATION RT-BID each 05/09/22 [Rx] lisinopriL [Zestril] 5 mg PO HS tab 05/09/22 [Rx] Follow up Appointment(s)/Referral(s): Elver Ponce PAC [PHYSICIAN CORPORATE SALES REPRESENTATIVE] - As Needed Ari Baker MD [Primary Care Provider] - 1-2 days Activity/Diet/Wound Care/Special Instructions: 1. Patient may utilize shoulder mobilizer for the left upper extremity for comfort support as needed 2. Weightbearing as tolerate left upper extremity Discharge Disposition: TRANSFER TO SNF/ECF
[2022-05-09 12:21] VITALS: PULSE 82
--- NOTE | 2022-05-09 14:49 | P.PN ---
Subjective Progress Note Date: 05/09/22 The patient is seen at bedside and feels about the same. Denies any new neurological issues. Patient had repeat CT head yesterday is reported as mild left sided subdural hygroma without change compared to yesterday. No hemorrhage. 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 Previous surgery. I personally could not review the CT of the head because of issues with system. Objective - Vital Signs Vital signs: Vital Signs Temp 98.0 F 05/09/22 05:04 Pulse 82 05/09/22 08:00 Resp 14 05/09/22 08:00 BP 136/73 05/09/22 05:04 Pulse Ox 95 05/09/22 07:40 FiO2 21 05/04/22 19:50 Intake & Output 05/08/22 05/09/22 05/09/22 18:59 06:59 18:59 Output Total 600 Balance -600 Output: Urine 600 Other: Voiding Method Incontinent Incontinent Incontinent External Catheter External Catheter External Catheter # Voids 1 0 # Bowel Movements 1 - Exam GENERAL: The patient is lying in bed and is not in acute distress. NEUROLOGICAL: Higher mental function: The patient is awake, alert, oriented to self and stated he was in the hospital. He stated the current year correctly but stated the year is 2023 again but later stated 2020. He is following simple commands. . No neglect or aphasia. Cranial nerves: No facial weakness. Very low tone voice. No dysarthria. Motor: The strength is able to right upper and bilateral lower extremities above gravity without deficits. Had hard time lifting the left upper extremity because shoulder issues. SOME OF THE WORK-UP DURING THIS HOSPITAL VISIT CONSISTED OF: * EEG is reported as abnormal. Mildly abnormal EEG due to the presence of amplitude asymmetry with relatively high amplitude activity with focal slowing involving the left temporal region, suggestive of focal cortical neuronal dysfunction and related to underlying breach rhythm from that craniotomy defect. No obvious epileptiform activity was seen. * Keppra level 26.6 (normal is 3-60). * CT head performed revealed prominence of the subdural space left frontal parietal region which is felt to reflect subdural hygroma rather than subacute subdural hematoma. No acute intracranial hemorrhages seen. * Repeat CT head on 05/07/22 and it is reported as acute intracranial hemorrhage or midline shift. Postsurgical changes with atrophy and chronic small vessel ischemic change all redemonstrated peers. Left extra-axial fluid collections suspected subdural collection is similar in size from prior study significant more hyperdense suggestive possible acute on chronic injury or bleed. At minimum continue CT imaging monitoring is advised. I personally could not review CT because of issues with system. * Patient had repeat CT head on 05/08/2022 is reported as mild left sided subdural hygroma without change compared to yesterday. No hemorrhage. 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 Previous surgery. I personally could not review the CT of the head because of issues with system. - Labs CBC & Chem 7: 05/07/22 07:05 05/08/22 05:15 Labs: Microbiology - Last 24 Hours (Table) 05/03/22 18:30 Blood Culture - Preliminary Blood No Growth after 120 hours Assessment and Plan Assessment: * Possible ?acute on chronic Subdural on repeated CT head on 05/07 but according to 05/08/2022 CT no new bleed. * Has hygroma, left frontal parietal region, with depth of 0.6 cm. His subdural result of repeated falls. * Encephalopathy of unknown etiology. He mentation has improved. It was suspected possible TIA vs seizure vs metabolic encephalopathy---mentation improved. * Reported recurrent falls * Hyponatremia--improving (currently 131 and on presentation was 125) * Paroxysmal atrial flutter/fibrillation. Patient on Eliquis. Patient had abnormal Holter monitoring on 02/23/2020 with paroxysmal atrial flutter with rapid ventricular response. * History of left sided craniotomy of unclear cause. 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 Therefore ? possibly was a TIA. * Blind left eye, chronic since 1970. * Chronic left shoulder pathology * COPD * Hyperlipidemia * Psych history * X tobacco use. Plan: * Patient had repeat CT head yesterday is reported as mild left sided subdural hygroma without change compared to yesterday. No hemorrhage. 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 Previous surgery. I personally could not review the CT of the head because of issues with system. * I stopped Eliquis on 2because of possible ?acute bleeding and risk ou tweigh the benefits. From neurological perspective recommend to avoid anticoagulation down the line since he has recurrent falls and with anticoagulation risk even goes up and the risk outweigh benefit to avoid any major bleed. I spoke with patient's film recordist (Dr. Almendarez) who agree of holding Eliquis because of recurrent falls and ?bleed and he stated once patient's follows-up in office with him then he will address starting anticoagulation. Consider ASA 325mg daily in repeat CT is stable. No need for neurosurgical evaluation since no worsening of ?bleed, patient is DN&R. * Continue Keppra 500 mg twice a day. * For hyponatremia, would defer to IM. * Orthopedic is consulted for left shoulder pain. * Will defer the rest of medical management to the primary team. * Code status is DN&R. The plan is discussed with the patient's primary attending and his nurse. No further work-up and patient is clear for discharge from neurological perspective. Time with Patient: Less than 30
== END 2022-05-09 15:00 | DRG 91 ==
LOC: EC 14:21 → EEVIPCON 17:56 → 5NMEDONC 17:56
PROVIDERS: ADMIT Hospitalist; ATTEND Hospitalist
DX: G96.08 Other cranial cerebrospinal fluid leak (principal); I62.02 Nontraumatic subacute subdural hemorrhage; G93.40 Encephalopathy, unspecified; F03.93 Unspecified dementia, unspecified severity, with mood disturbance; I48.19 Other persistent atrial fibrillation; E87.1 Hypo-osmolality and hyponatremia; I48.92 Unspecified atrial flutter; G45.9 Transient cerebral ischemic attack, unspecified; N39.0 Urinary tract infection, site not specified; F20.9 Schizophrenia, unspecified; J44.9 Chronic obstructive pulmonary disease, unspecified; F10.21 Alcohol dependence, in remission; G93.89 Other specified disorders of brain; G40.909 Epilepsy, unspecified, not intractable, without status epilepticus; I10 Essential (primary) hypertension; H53.461 Homonymous bilateral field defects, right side; R62.7 Adult failure to thrive; E86.0 Dehydration; Z79.01 Long term (current) use of anticoagulants; R29.6 Repeated falls; Z66 Do not resuscitate; E78.5 Hyperlipidemia, unspecified; W19.XXXA Unspecified fall, initial encounter; M48.02 Spinal stenosis, cervical region; M43.12 Spondylolisthesis, cervical region; M25.512 Pain in left shoulder; E87.6 Hypokalemia; R41.89 Other symptoms and signs involving cognitive functions and awareness; H54.62 Unqualified visual loss, left eye, normal vision right eye; S49.92XA Unspecified injury of left shoulder and upper arm, initial encounter; R91.8 Other nonspecific abnormal finding of lung field; G89.29 Other chronic pain; Z20.822 Contact with and (suspected) exposure to COVID-19; Y92.129 Unspecified place in nursing home as the place of occurrence of the external cause; Z86.73 Personal history of transient ischemic attack (TIA), and cerebral infarction without residual deficits; Z91.81 History of falling; Z87.891 Personal history of nicotine dependence; Z79.899 Other long term (current) drug therapy; Z28.310 Unvaccinated for COVID-19; Z86.718 Personal history of other venous thrombosis and embolism; Z87.440 Personal history of urinary (tract) infections
CPT/HCPCS: 36415; 70450; 71046; 72125; 80048; 80053; 80177; 80306; 81001; 82140; 83735; 84132; 84484; 85025; 85610; 85730; 87040; 87635; 93005; 94640; 94760; 95819; 96361; 96365; 96366; 96375; 99285